=== PATIENT | female | born 1945 | race Caucasian/White ===

== ENCOUNTER 2023-01-22 16:37 | Inpatient (IN) | payer MEDICARE, SELFPAY ==
[2023-01-22 17:36] LABS: Basophils # 0.1 10^3/uL (0.0-0.1); Basophils % 0.8 %; Eosinophils # 0.2 10^3/uL (0.0-0.8); Eosinophils % 2.3 %; Hematocrit 23.5 % (36-47); Lymphocytes # 1.4 10^3/uL (0.8-4.8); Lymphocytes % 14.6 %; Mean Corpuscular HGB Conc 33.2 g/dL (30-55); Mean Corpuscular Hemoglobin 33.3 pg (27-33); Mean Corpuscular Volume 100.4 fl (85-98); Mean Platelet Volume 8.7 fL (7.4-10.4); Monocytes # 0.8 10^3/uL (0.2-0.9); Monocytes % 8.8 %; Neutrophils # 6.86 10^3/uL (1.8-7.7); Neutrophils % 71.6 %; Nucleated Red Blood Cells % 0 %; Platelet Count 316 10^3/cmm (157-399); Red Blood Count 2.34 10^6/uL (3.85-5.65); Red Cell Distribution Width 13.3 % (12.1-15.1); White Blood Count 9.58 10^3/uL (3.29-11.43)
[2023-01-22 17:45] VITALS: PULSE 70; TEMP 37; O2SAT 92; BMI 33.1
[2023-01-22 17:53] VITALS: BP 150/47
[2023-01-22 17:54] LABS: Alanine Aminotransferase 15 U/L (0-33); Albumin Level 3.6 g/dL (3.5-5.2); Alkaline Phosphatase 65 U/L (35-105); Anion Gap 12.1 (5-19); Aspartate Amino Transferase 15 U/L (0-32); Blood Urea Nitrogen 25 mg/dL (8-23); Calcium 8.4 mg/dL (8.5-10.5); Carbon Dioxide 30 mmol/L (22-29); Chloride 95 mmol/L (98-107); Globulin 2.7 g/dL (1.3-4.6); Glucose 165 mg/dL (65-115); Osmolality Calculated 284 mOsm/kg (285-295); Potassium 4.1 mmol/L (3.5-5.1); Sodium 133 mmol/L (136-145); Total Bilirubin 0.3 mg/dL (0.15-1.2); Total Protein 6.3 g/dL (6.6-8.7)
[2023-01-22 21:30] VITALS: BP 142/56; PULSE 69; TEMP 36.8; O2SAT 96
[2023-01-22 22:00] VITALS: PULSE 73; O2SAT 93
--- NOTE | 2023-01-22 22:23 | W.ED.RECABL ---
HPI - Recheck/Abnormal Lab/Rx General: Chief Complaint: Recheck/Abnormal Lab/Rx Stated Complaint: doctor thinks that her hgb is low Time Seen by Provider: 01/22/23 21:28 History of Present Illness: 77-year-old female brought to emergency room by [id number] with generalized weakness and recent fall. Family reveals that patient was admitted on Thursday for upper GI bleed and discharge on Thursday with a hemoglobin of 7.5 after she was transfused with 1 unit of blood. Since discharge from the hospital patient become more weak, dizzy and had a fall this morning. Patient is on any cough, coughing up blood or vomiting blood. No bloody stool or dark stool. Review of Systems General: Reports: 10 or more systems reviewed and unremarkable except in HPI and below Const: Denies: fever(s), chills or body aches Card: Denies: chest pain, palpitations or irregular heart rhythm Resp: Denies: dyspnea, productive cough, non-productive cough, wheezing, stridor, pain on inspiration or change in phlegm color GI: Denies: abdominal pain, nausea, vomiting, hematemesis, early satiety, diarrhea or constipation Musc: Denies: neck pain, back pain, extremity pain, extremity swelling, joint pain, joint swelling, joint redness or joint warmth Skin/Breast: Reports: rash, skin pain and skin tenderness; Denies: erythema, photosensitivity or skin swelling Neuro: Reports: weakness in extremities; Denies: headache(s), numbness in extremities, behavioral changes, Slurred speech present, difficulty communicating thoughts, seizure-like activity, involuntary movements or restless legs Ray/Lymph: Denies: easy bruising, easy bleeding, petechiae, purpura, enlarged lymph nodes or tender lymph nodes Physical Exam Const: COMMON NORMALS: no acute distress, average body habitus, patient oriented x3, no limitations, healthy appearing, alert and well nourished HENMT: COMMON NORMALS: normocephalic, atraumatic, hearing grossly normal bilaterally, external ears normal, EAC's normal, TM's normal bilaterally, Normal external nose present, Normal nasal mucous membranes and turbinates present, moist oral mucous membranes, oropharynx normal, dentition normal and gingiva normal HEAD & SCALP: normocephalic and atraumatic NOSE: Normal external nose present and Normal nasal mucous membranes and turbinates present EXTERNAL EAR: Yes external ears normal EXTERNAL AUDITORY CANAL: EAC's normal TYMPANIC MEMBRANE: TM's normal bilaterally Neck/C-Spine: COMMON NORMALS: no JVD Chest: COMMONS NORMALS: normal inspection of the chest, normal palpation of entire chest wall, normal inspection of the breasts and normal palpation of the breasts Breast/axilla inspection: Yes normal inspection of the breasts BREAST/AXILLA PALPATION: Yes normal palpation of the breasts Resp: COMMON NORMALS: normal respiratory effort, No retractions, No use of accessory muscles, clear to auscultation bilaterally and percussion normal AUSCULTATION: clear to auscultation bilaterally PERCUSSION: percussion normal Cardio: COMMON NORMALS: no JVD, regular rate, regular rhythm, S1 normal heart sound present, S2 normal heart sound present, No gallops present (Cardio), No clicks present (Cardio), No murmurs present (Cardio), No rub (Cardio) and Peripheral pulses 2+ throughout RATE: regular rate RHYTHM: regular rhythm HEART SOUNDS: S1 normal heart sound present and S2 normal heart sound present PERIPHERAL PULSES: Peripheral pulses 2+ throughout GI: COMMON NORMALS: Normal to inspection, nondistended, normoactive bowel sounds present, Soft to palpation, non-tender, No hepatosplenomegaly present, no masses and no bruits PALPATION: Yes Soft to palpation and Yes No hepatosplenomegaly present Extremity: COMMON NORMALS: normal to inspection, full ROM, capillary refill normal, no joint enlargement, no clubbing, cyanosis or edema, no calf tenderness and no pedal edema Neuro: LOAN COMA SCALE: document GCS findings COMMON NORMALS: patient oriented x3 SENSORIUM/ORIENTATION: Yes alert Psych: COMMON NORMALS: mental status grossly normal, Normal thought process present, cooperative, normal affect, speech normal, activity/motor behavior normal, denies hallucinations, denies homicidal ideation and denies suicidal ideation SPEECH: Yes normal speech THOUGHT PROCESS: Normal thought process present Skin: LESIONS: lesion noted (ruq with lesions c/w shingles ) Course ED course: Patient made comfortable in emergency room and had extensive work-up done including CBC, CMP and a UA. Discussed patient with family and the hospitalist. Patient will be admitted for further evaluation and treatment Consultations: Consultation #1: Discussed patient with the hospitalist. Patient will be admitted for further evaluation and treatment. Vital Signs: Vital signs: Vital Signs Temperature 98.2 F 01/22/23 21:30 Pulse Rate 69 01/22/23 21:30 Blood Pressure 142/56 01/22/23 21:30 Pulse Oximetry 96 01/22/23 21:30 Oxygen Delivery Me thod Room Air 01/22/23 21:30 MDM - Recheck/Abnormal Lab/Rx Medical Decision Making Patient made comfortable emergency room and had extensive work-up with CBC, CMP and a UA. Discussed patient with family and the hospitalist. Differential Diagnosis Likely warfarin-induced coagulopathy (UTI, GI bleeding, anemia, acute infection) Lab Data 01/22/23 17:07 01/22/23 17:07 Laboratory Results WBC 9.58 10^3/uL (3.29-11.43) 01/22/23 17:07 RBC 2.34 10^6/uL (3.85-5.65) L 01/22/23 17:07 Hgb 7.80 g/dL (11.27-16.99) L 01/22/23 17:07 Hct 23.5 % (36-47) L 01/22/23 17:07 MCV 100.4 fl (85-98) H 01/22/23 17:07 MCH 33.3 pg (27-33) H 01/22/23 17:07 MCHC 33.2 g/dL (30-55) 01/22/23 17:07 RDW 13.3 % (12.1-15.1) 01/22/23 17:07 Plt Count 316 10^3/cmm (157-399) 01/22/23 17:07 MPV 8.7 fL (7.4-10.4) 01/22/23 17:07 Neut % (Auto) 71.6 % 01/22/23 17:07 Lymph % (Auto) 14.6 % 01/22/23 17:07 [place] % (Auto) 8.8 % 01/22/23 17:07 Eos % (Auto) 2.3 % 01/22/23 17:07 Baso % (Auto) 0.8 % 01/22/23 17:07 Neut # (Auto) 6.86 10^3/uL (1.8-7.7) 01/22/23 17:07 Lymph # (Auto) 1.4 10^3/uL (0.8-4.8) 01/22/23 17:07 [place] # (Auto) 0.8 10^3/uL (0.2-0.9) 01/22/23 17:07 Eos # (Auto) 0.2 10^3/uL (0.0-0.8) 01/22/23 17:07 Baso # (Auto) 0.1 10^3/uL (0.0-0.1) 01/22/23 17:07 Nucleated RBC % (auto) 0 % 01/22/23 17:07 Nucleated RBCs # 0.0 /100WBC 01/22/23 17:07 Sodium 133 mmol/L (136-145) L 01/22/23 17:07 Potassium 4.1 mmol/L (3.5-5.1) 01/22/23 17:07 Chloride 95 mmol/L (98-107) L 01/22/23 17:07 Carbon Dioxide 30 mmol/L (22-29) H 01/22/23 17:07 Anion Gap 12.1 (5-19) 01/22/23 17:07 BUN 25 mg/dL (8-23) H 01/22/23 17:07 Creatinine 1.1 mg/dL (0.5-0.9) H 01/22/23 17:07 GFR Calculation Not Reportable 01/22/23 17:07 Glucose 165 mg/dL (65-115) H 01/22/23 17:07 Calculated Osmolality 284 mOsm/kg (285-295) L 01/22/23 17:07 Calcium 8.4 mg/dL (8.5-10.5) L 01/22/23 17:07 Total Bilirubin 0.3 mg/dL (0.15-1.2) 01/22/23 17:07 AST 15 U/L (0-32) 01/22/23 17:07 ALT 15 U/L (0-33) 01/22/23 17:07 Alkaline Phosphatase 65 U/L (35-105) 01/22/23 17:07 Total Protein 6.3 g/dL (6.6-8.7) L 01/22/23 17:07 Albumin 3.6 g/dL (3.5-5.2) 01/22/23 17:07 Globulin 2.7 g/dL (1.3-4.6) 01/22/23 17:07 No radiology studies performed this visit Discharge Plan Discharge Patient Disposition: Placed in Observation Clinical Impression: Physical deconditioning, Shingles, Anemia Coding Level of Care Code ED [employer] for [place]
[2023-01-22 23:00] VITALS: PULSE 67; O2SAT 91
[2023-01-22] MEDS: sodium chloride 0.9% 500 ML IV (23:40)
[2023-01-22] MEDS: valACYclovir 1,000 mg Tablet 1000 MG PO (23:40)
[2023-01-23] VITALS (8 sets, daily range): BP systolic 157–185; BP diastolic 61–74; PULSE 66–77; RESP 16–18; TEMP 36.4–37; O2SAT 91–96
--- NOTE | 2023-01-23 05:42 | P.HP_ITS ---
Providers/Chief Complaint Admitting Physician: Kristi Ruby MD Primary Care Provider: Alex Gary DO Chief Complaint: doctor thinks that her hgb is low History of Present Illness Leslie Waddell is a 77 year old female was brought in by family for generalized weakness and unable to get out of bed. She was recently seen in [place] on Thursday for severe anemia secondary to GI bleed. She received 1 unit blood transfusion and was discharged on Thursday. Since then the family has been mentioning of her worsening weakness. There is no history of fever cold cough chest pain shortness of breath urinary or bowel complaints. Last hemoglobin on discharge was 7.5 Review of Systems Narrative: As per HPI Medications/Allergies Allergies Allergy/AdvReac Type Severity Reaction Status Date / Time Penicillins Allergy Unknown Verified 01/22/23 17:54 Vitals/I&O/Wt Last Vital Signs Temp 98.3 F 01/23/23 05:18 Pulse 68 01/23/23 05:18 Resp 18 01/23/23 05:18 BP 166/65 01/23/23 05:18 Pulse Ox 91 01/23/23 05:18 O2 Del Method Room Air 01/23/23 05:18 01/22/23 01/22/23 01/23/23 14:59 22:59 06:59 Intake Total 500 / 500 Balance 500 / 500 Weight last 48 hrs Weight 90.265 kg Physical Exam Narrative: She is alert awake oriented x3, not in acute distress Chest clear to auscultation bilaterally Cardiovascular normal heart sounds regular rhythm Abdomen NAD Skin macular erythematous rash with signs of secondary bacterial infection seen on right lateral abdomen consistent with shingles rash with secondary infection Extremities 1+ pitting bilateral lower extremity edema present Data 01/22/23 17:07 01/22/23 17:07 A&P Assessment and plan (1) Physical deconditioning: (2) Anemia: Plan 77-year-old female with history of CAD s/p CABG 5 years ago atrial fibrillation on warfarin till 1 week ago, recent history of GI bleed history of shingles 3 weeks ago no antiviral medications take and chronic anemia was brought in by family for worsening of generalized weakness likely secondary to physical deconditioning Labs reviewed and acceptable. Hemoglobin stable at 7.8. No need for further blood transfusion at this time. Continue IV fluids normal saline at 60 mm/h Will get PT evaluation in a.m. Regular diet Home medications to be confirmed in a.m. and resumed. IV Pepcid 20 mg every 12 hours for stress ulcer prophylaxis Given history of recent GI bleed intermittent compression stockings for DVT prophylaxis. She is full code for now Shingles with secondary bacterial infection Will give p.o. valacyclovir 1 g twice daily And p.o. Bactrim DS 1 tab twice a day Attestations Medical Necessity Statement*: She is here for observation for rehab Time Spent in Patient Care: 30 minutes Coding Level of Care Code Acute Code for g Fwd Diagnoses Physical deconditioning R53.81 Anemia D64.9 Time Spent (min) 30
[2023-01-23] MEDS: sodium chloride 0.9% 1,000 ML 60 ML IV ×2 (05:53→17:43)
[2023-01-23] MEDS: famotidine 20 mg/2 mL INJ IVP (06:03)
[2023-01-23] MEDS: valACYclovir 1,000 mg Tablet 1000 MG PO ×3 (08:30→23:42)
[2023-01-23] MEDS: sulfamethoxazole-trimeth DS 160-800 mg Tablet 1 TAB PO (08:30)
[2023-01-23 09:15] LABS: Basophils # 0.1 10^3/uL (0.0-0.1); Basophils % 1.1 %; Eosinophils # 0.2 10^3/uL (0.0-0.8); Eosinophils % 2.6 %; Hematocrit 23.3 % (36-47); Lymphocytes # 1.2 10^3/uL (0.8-4.8); Lymphocytes % 13.8 %; Mean Corpuscular Hemoglobin 33.2 pg (27-33); Mean Corpuscular Volume 100.4 fl (85-98); Mean Platelet Volume 8.9 fL (7.4-10.4); Monocytes # 0.7 10^3/uL (0.2-0.9); Monocytes % 8.7 %; Neutrophils % 71.9 %; Nucleated Red Blood Cells % 0 %; Platelet Count 319 10^3/cmm (157-399); Red Blood Count 2.32 10^6/uL (3.85-5.65); Red Cell Distribution Width 13.3 % (12.1-15.1); White Blood Count 8.48 10^3/uL (3.29-11.43)
--- NOTE | 2023-01-23 09:39 | XR_ITS ---
WS: [id number] Exam: XR chest 1V portable [id number] Date/Time of Exam: 01/23/2023 10:08 AM Reason For Exam: weakness No priors. Lungs are clear and fully inflated. Cardiomediastinal silhouette is unremarkable. No pleural effusion s. Eventration of the RIGHT diaphragm. Bony structures are intact. Moderate DJD of the RIGHT shoulder . Bilateral carotid artery calcified plaques noted. IMPRESSION: 1. No acute cardiopulmonary finding. 2. Status post CABG surgery. Other minor findings as above.
[2023-01-23 10:05] LABS: Alanine Aminotransferase 14 U/L (0-33); Albumin Level 3.5 g/dL (3.5-5.2); Alkaline Phosphatase 64 U/L (35-105); Anion Gap 11.1 (5-19); Aspartate Amino Transferase 14 U/L (0-32); Blood Urea Nitrogen 19 mg/dL (8-23); Calcium 8.3 mg/dL (8.5-10.5); Carbon Dioxide 29 mmol/L (22-29); Chloride 95 mmol/L (98-107); Globulin 2.2 g/dL (1.3-4.6); Glucose 236 mg/dL (65-115); Osmolality Calculated 282 mOsm/kg (285-295); Potassium 4.1 mmol/L (3.5-5.1); Sodium 131 mmol/L (136-145); Total Bilirubin 0.2 mg/dL (0.15-1.2); Total Protein 5.7 g/dL (6.6-8.7)
[2023-01-23 10:19] LABS: Troponin(5th) Baseline 17 ng/L (0-10)
[2023-01-23] MEDS: ondansetron 2 mg/ML SDV 2 mL 4 MG IVP (10:33)
[2023-01-23] MEDS: pantoprazole 40 mg SDV IVP ×2 (10:33→22:58)
[2023-01-23 10:37] LABS: Folate Level < 20.0 ng/mL (4.8-37.3)
[2023-01-23 10:38] LABS: Ferritin 41 ng/mL (15-150); Iron 18 ug/dL (37-145); NT Pro B Type Natriuretic Pept 257 pg/mL (0-450); Percent Saturation 6.5 % (20-50); Total Iron Binding Capacity 276 mcg/dl; Unsaturated Iron Binding 258 ug/dL (112-347); Vitamin B12 708 pg/mL (232-1245)
--- NOTE | 2023-01-23 11:28 | ECG_ITS ---
[facility] Test Date: 2023-01-23 Pat Name: Leslie Waddell Department: Room: 267 Gender: Female [employer]: : [id number] Requested By: Dragan Kohler Order Number: [id number] Charlie MD: Tiana Aden M.D. Measurements Intervals [place] Rate: 76 P: 9 DC: 172 QRS: 5 QRSD: 79 T: 132 QT: 347 QTc: 390 Interpretive Statements SINUS RHYTHM LEFT VENTRICULAR HYPERTROPHY AND ST-T CHANGE [VOLTAGE CRITERIA PLUS ST/T ABNORMALITY] POSSIBLE ANTERIOR MYOCARDIAL INFARCTION , OF INDETERMINATE AGE [30 ms Q WAVE IN V3/V4, OR R < 0.2 mV IN V4] No previous ECG available for comparison Electronically Signed On 01-23-2023 19:06:58 CDT by Tiana Aden M.D. [id number]
[2023-01-23 11:54] LABS: Glucose Point of Care 221 mg/dL (70-110)
--- NOTE | 2023-01-23 12:13 | CT_ITS ---
WS: [id number] CT ABDOMEN AND PELVIS NONCONTRAST HISTORY: n/v TECHNIQUE: Imaging performed through the abdomen and pelvis. Coronal and sagittal reformats are submi tted. All CT scans at [facility] use at least one of these dose optimization techniques: auto mated exposure control; mA and/or kV adjustment per patient size (includes targeted exams where dose is matched to clinical indication); or iterative reconstruction. DLP: 999.73 mGy.cm COMPARISON: None available. Lower thorax: Lung bases are clear. Visualized heart is mildly enlarged. No hiatal hernia. Prior CABG . Liver: Normal size liver. No mass or bile duct dilatation. Gallbladder: Normal gallbladder. No pericholecystic fluid or cholelithiasis. No gallbladder wall thic kening. Pancreas: Mild atrophy. No inflammation. No duct dilatation prior Spleen: Normal size with granulomata. Adrenal glands: Normal RIGHT adrenal gland. Lobulated low-attenuation mass measuring 2.0 x 1.5 cm ass ociated with the LEFT adrenal gland. Consistent with an adenoma. Right kidney: Normal size kidney with no mass or hydronephrosis. Left kidney: Normal size kidney with no mass or hydronephrosis. Aorta: Mild atherosclerosis abdominal aorta with no aneurysm. No free fluid, intraperitoneal air or significant lymphadenopathy. GI tract: Nondistended stomach. No small bowel obstruction. The appendix is not identified. No second anmol findings of appendicitis. Mild diverticular disease in the sigmoid. No acute diverticulitis. Abdominal wall: Small umbilical hernia contains fat only. Pelvis: No free fluid or adenopathy. Negative urinary bladder. Osseous structures: Increase in lumbar lordosis. Degenerative disc disease and vacuum disc phenomenon . IMPRESSION: 1. No acute abdominal or pelvic abnormalities. 2. No renal obstruction. 3. No GI tract obstruction. 4. Mild diffuse atherosclerosis aorta and iliac arteries.
--- NOTE | 2023-01-23 12:13 | CT_ITS ---
WS: [id number] CT HEAD NONCONTRAST HISTORY: ams TECHNIQUE: Contiguous axial imaging performed through the brain in 2.5 mm imaging. Bone and soft tiss ue windows. Sagittal and coronal reformats reviewed. All CT scans at [facility] use at least one of these dose optimization techniques: automated exposure control; mA and/or kV adjustment per pa tient size (includes targeted exams where dose is matched to clinical indication); or iterative recon struction. DLP: 2203.58 mGy.cm COMPARISON: None available. No acute intracranial hemorrhage, midline shift or mass effect. Low-attenuation centered in the RIGHT frontal lobe involve the corpus callosum. Cortex is spared. Thi s focal edema is very low-attenuation and measures 1.5 x 2.6 x 3.2 cm. No shift of the midline struct ures. There is no hemorrhage or calcification. Mild atrophy. Prior lacunar infarct in the anterior li mb of the RIGHT internal capsule, insular ribbon on the LEFT. Ventricles: Normal size with no hydroc ephalus. Paranasal sinuses: As visualized are clear. Mastoid air cells: Well pneumatized. Calvarium and scalp: Skull is intact with no soft tissue edema or swelling. Moderate vascular calcifications in the distal LEFT vertebral artery and also involving the bilateral intracranial carotid arteries. IMPRESSION: 1. Low-attenuation edema centered in the RIGHT frontal lobe with involvement of the corpus callosum. No hemorrhage or calcification. White matter abnormality measures 1.5 x 2.6 x 3.2 cm. Differential in cludes glioma, metastatic disease and primary lymphoma. Infarct or demyelination not excluded. Recomm end follow-up MRI brain with and without contrast. 2. Mild atrophy and small vessel ischemic disease with small lacunar infarcts.
[2023-01-23] MEDS: insulin lispro 100 unit/1 mL SUBCUT ×2 (13:19→17:43)
[2023-01-23] MEDS: amlodipine 10 mg Tablet PO (13:38)
--- NOTE | 2023-01-23 15:23 | P.PN_ITS ---
Subjective Subjective: Patient was seen this morning, she is alert to person, to place, not to time she does follow commands but she is quite drowsy this morning, she requires frequent reorientation, she is able to move both upper extremities lower extremities, she feels very nauseous, she does complain of right upper quadrant abdominal pain but that is where her shingles rashes she tells me, she tells me that she was recently here at outside hospital for GI bleed she had EGD she was found to have a gastric ulcer her Coumadin has been stopped, for A-fib denies any facial droop no slurring of her words, no focal weakness, she does feel weak all over, Vitals/I&O/Wt Last Vital Signs Temp 98.5 F 01/23/23 11:10 Pulse 77 01/23/23 11:10 Resp 16 01/23/23 11:10 BP 178/63 01/23/23 11:10 Pulse Ox 94 01/23/23 11:10 O2 Del Method Room Air 01/23/23 11:10 01/23/23 01/23/23 01/23/23 06:59 14:59 22:59 Intake Total 500 / 500 360 / 360 Balance 500 / 500 360 / 360 Weight last 48 hrs Weight 90.265 kg Physical Exam Const: COMMON NORMALS: no acute distress and patient oriented x3 Resp: COMMON NORMALS: normal respiratory effort, No retractions, No use of accessory muscles and clear to auscultation bilaterally AUSCULTATION: clear to auscultation bilaterally Cardio: COMMON NORMALS: regular rate, regular rhythm, S1 normal heart sound present and S2 normal heart sound present RATE: regular rate RHYTHM: regular rhythm HEART SOUNDS: S1 normal heart sound present and S2 normal heart sound present GI: OTHER: He doesAbdomen soft, ND, no guarding, no rebound, rigidity, does have right upper quadrant tenderness Extremity: COMMON NORMALS: no pedal edema Neuro: COMMON NORMALS: patient oriented x3 Psych: COMMON NORMALS: mental status grossly normal Skin: NARRATIVE SKIN EXAM: Shingles rash, open, multiple vesicular regions, actively draining, along right upper quadrant dermatomal fashion Data 01/23/23 09:03 01/23/23 09:03 A&P Assessment and plan (1) Physical deconditioning: (2) Anemia: (3) Shingles: (4) GI bleed: (5) History of atrial fibrillation: (6) History of type 2 diabetes mellitus: (7) Acute encephalopathy: (8) Generalized weakness: Plan 77-year-old female with history of CAD s/p CABG 5 years ago atrial fibrillation on warfarin till 1 week ago, recent history of GI bleed history of shingles 3 weeks ago no antiviral medications take and chronic anemia was brought in by family for worsening of generalized weakness Acute on chronic anemia -Possibly secondary to slow GI bleed -Iron studies, ferritin, B12, folate levels, Hemoccult stool, CT scan abdomen pelvis -Monitor hemoglobin closely History of GI bleed, history of gastric ulcer -Protonix, Carafate -Monitor hemoglobin closely Intractable nausea vomiting -Complains of right upper quadrant pain -CT scan abdomen pelvis Shingles rash -Right upper quadrant -Contact precautions -Keep area clean and dry, keep covered -Continue valacyclovir -Tramadol for pain control -Doxycycline for cellulitis prophylaxis Generalized weakness -PT OT Type 2 diabetes mellitus, low-dose sliding scale, Lantus 10 units at bedtime Acute encephalopathy, CT head, neurochecks, aspiration precautions, and a stroke scale Atrial fibrillation, not on anticoagulation due to GI bleed, off Coumadin, telemetry monitoring ARIANA, IV fluids Given history of recent GI bleed intermittent compression stockings for DVT prophylaxis. She is full code for now Attestations Medical Necessity Statement*: Patient requires hospitalization due to generalized weakness, anemia, history of GI bleed, encephalopathy, Coding Level of Care Code 13537 Moderate MDM includes number and complexity of problems actively addressed during encounter, amount and/or complexity of data reviewed/ordered and described risk of complication, morbidity or mortality of management as document ed Diagnoses Physical deconditioning R53.81 Anemia D64.9 Shingles B02.9 GI bleed K92.2 History of atrial fibrillation Z86.79 History of type 2 diabetes mellitus Z86.39 Acute encephalopathy G93.40 Generalized weakness R53.1
[2023-01-23 15:49] LABS: Troponin 5 6HR 17.31 ng/L (0-10); Troponin 5 6HR Delta 0.31 ng/L (0-12)
[2023-01-23] MEDS: gabapentin 300 mg Capsule PO ×2 (16:03→21:36)
[2023-01-23 16:46] LABS: Glucose Point of Care 157 mg/dL (70-110)
[2023-01-23] MEDS: OXcarbazepine 300 mg Tablet PO (17:42)
[2023-01-23] MEDS: doxycycline 100 mg Tablet PO (17:43)
[2023-01-23] MEDS: metoclopramide 5 mg/mL SDV 2 mL IVP (18:04)
[2023-01-23 18:37] LABS: Hematocrit 28.7 % (36-47)
[2023-01-23 20:38] LABS: Glucose Point of Care 177 mg/dL (70-110)
[2023-01-23] MEDS: insulin glargine 100 units/1 mL 10 UNIT SUBCUT (21:36)
[2023-01-23] MEDS: sucralfate 1 gm Tablet PO (21:36)
[2023-01-24] VITALS (10 sets, daily range): BP systolic 141–165; BP diastolic 61–71; PULSE 62–76; RESP 14–18; TEMP 36.8–37.1; O2SAT 83–98
[2023-01-24 05:36] LABS: Basophils # 0.1 10^3/uL (0.0-0.1); Basophils % 1.2 %; Eosinophils # 0.4 10^3/uL (0.0-0.8); Eosinophils % 4.9 %; Hematocrit 24.5 % (36-47); Lymphocytes # 1.5 10^3/uL (0.8-4.8); Lymphocytes % 16.6 %; Mean Corpuscular HGB Conc 32.2 g/dL (30-55); Mean Corpuscular Hemoglobin 32.5 pg (27-33); Mean Corpuscular Volume 100.8 fl (85-98); Mean Platelet Volume 8.7 fL (7.4-10.4); Monocytes # 0.9 10^3/uL (0.2-0.9); Monocytes % 10.3 %; Neutrophils # 5.83 10^3/uL (1.8-7.7); Neutrophils % 65.2 %; Nucleated Red Blood Cells % 0 %; Platelet Count 323 10^3/cmm (157-399); Red Blood Count 2.43 10^6/uL (3.85-5.65); Red Cell Distribution Width 13.4 % (12.1-15.1); White Blood Count 8.95 10^3/uL (3.29-11.43)
[2023-01-24 06:00] LABS: Anion Gap 10.2 (5-19); Blood Urea Nitrogen 17 mg/dL (8-23); Calcium 8.4 mg/dL (8.5-10.5); Carbon Dioxide 29 mmol/L (22-29); Chloride 98 mmol/L (98-107); Glucose 109 mg/dL (65-115); Osmolality Calculated 278 mOsm/kg (285-295); Potassium 4.2 mmol/L (3.5-5.1); Sodium 133 mmol/L (136-145)
[2023-01-24 08:42] LABS: Glucose Point of Care 147 mg/dL (70-110)
[2023-01-24 08:42] LABS: Glucose Point of Care 122 mg/dL (70-110)
[2023-01-24] MEDS: valACYclovir 1,000 mg Tablet 1000 MG PO ×3 (08:51→23:53)
[2023-01-24] MEDS: insulin lispro 100 unit/1 mL SUBCUT ×3 (08:51→17:29)
[2023-01-24] MEDS: gabapentin 300 mg Capsule PO ×3 (08:52→21:08)
[2023-01-24] MEDS: sucralfate 1 gm Tablet PO ×2 (08:52→21:08)
[2023-01-24] MEDS: doxycycline 100 mg Tablet PO ×2 (08:52→17:28)
[2023-01-24] MEDS: amlodipine 10 mg Tablet PO (08:52)
[2023-01-24] MEDS: OXcarbazepine 300 mg Tablet PO ×2 (08:52→17:28)
[2023-01-24] MEDS: pantoprazole 40 mg SDV IVP ×2 (10:28→23:45)
[2023-01-24 10:51] LABS: Glucose Point of Care 209 mg/dL (70-110)
[2023-01-24] MEDS: TRAMadol 50 mg Tablet PO (11:30)
--- NOTE | 2023-01-24 12:55 | PM.PN ---
Vitals/I&O/Wt Last Vital Signs Temp 98.2 F 01/24/23 10:53 Pulse 75 01/24/23 10:53 Resp 18 01/24/23 10:53 BP 153/61 01/24/23 10:53 Pulse Ox 96 01/24/23 10:53 O2 Del Method Room Air 01/24/23 10:53 01/23/23 01/24/23 01/24/23 22:59 06:59 14:59 Intake Total 710 / 1070 1480 / 1480 Output Total 400 / 400 Balance 710 / 1070 1080 / 1080 Weight last 48 hrs Weight 90.265 kg Physical Exam Const: COMMON NORMALS: no acute distress and patient oriented x3 Resp: COMMON NORMALS: normal respiratory effort, No retractions, No use of accessory muscles and clear to auscultation bilaterally AUSCULTATION: clear to auscultation bilaterally Cardio: COMMON NORMALS: regular rate, regular rhythm, S1 normal heart sound present and S2 normal heart sound present RATE: regular rate RHYTHM: regular rhythm HEART SOUNDS: S1 normal heart sound present and S2 normal heart sound present GI: COMMON NORMALS: Normal to inspection, nondistended, normoactive bowel sounds present and non-tender Extremity: COMMON NORMALS: no pedal edema Neuro: COMMON NORMALS: patient oriented x3 Psych: COMMON NORMALS: mental status grossly normal Data 01/24/23 05:15 01/24/23 05:15 A&P Assessment and plan (1) Physical deconditioning: (2) Anemia: (3) Shingles: (4) GI bleed: (5) History of atrial fibrillation: (6) History of type 2 diabetes mellitus: (7) Acute encephalopathy: (8) Generalized weakness: Plan 77-year-old female with history of CAD s/p CABG 5 years ago atrial fibrillation on warfarin till 1 week ago, recent history of GI bleed history of shingles 3 weeks ago no antiviral medications take and chronic anemia was brought in by family for worsening of generalized weakness Acute on chronic anemia -Possibly secondary to slow GI bleed -Iron studies, ferritin, B12, folate levels, Hemoccult stool, CT scan abdomen pelvis no acute findings -Monitor hemoglobin closely History of GI bleed, history of gastric ulcer -Protonix, Carafate -Monitor hemoglobin closely Intractable nausea vomiting -Complains of right upper quadrant pain -CT scan abdomen pelvis Shingles rash -Right upper quadrant -Contact precautions -Keep area clean and dry, keep covered -Continue valacyclovir -Tramadol for pain control -Doxycycline for cellulitis prophylaxis Generalized weakness -PT OT Type 2 diabetes mellitus, low-dose sliding scale, Lantus 10 units at bedtime Acute encephalopathy, CT head, neurochecks, aspiration precautions, and a stroke scale Atrial fibrillation, not on anticoagulation due to GI bleed, off Coumadin, telemetry monitoring ARIANA, IV fluids Given history of recent GI bleed intermittent compression stockings for DVT prophylaxis. She is full code for now ct head shows 1. Low-attenuation edema centered in the RIGHT frontal lobe with involvement of the corpus callosum. No hemorrhage or calcification. White matter abnormality measures 1.5 x 2.6 x 3.2 cm. Differential includes glioma, metastatic disease and primary lymphoma. Infarct or demyelination not excluded. Recommend follow-up MRI brain with and without contrast. -devora order MRI brain will order mri today, follow hgb Attestations Medical Necessity Statement*: patient acute on chronic anemia, ct head and mri, pt ot Diagnoses Physical deconditioning R53.81 Anemia D64.9 Shingles B02.9 GI bleed K92.2 History of atrial fibrillation Z86.79 History of type 2 diabetes mellitus Z86.39 Acute encephalopathy G93.40 Generalized weakness R53.1
--- NOTE | 2023-01-24 13:12 | MRR_ITS ---
PROCEDURE INFORMATION: Exam: MR Head Without Contrast Exam date and time: 01/24/2023 1:37 PM Age: 77 years old Clinical indication: Abnormal findings; Abnormal radiologic findings of head/skull; Not specified; Additional info: Low-attenuation edema centered in the right frontal lobe TECHNIQUE: Imaging protocol: Magnetic resonance imaging of the head without contrast. COMPARISON: CT head wo con* [id number] 01/23/2023 12:54 PM FINDINGS: Brain: Area of restricted diffusion in the medial right frontal lobe, corresponding with location of hypodense lesion seen on comparison CT head, now measuring roughly 2.3 x 1.4 cm (series 302, image 18). Mild/minimal surrounding cerebral edema. No focal mass effect. Multiple additional scattered tiny foci of restricted diffusion in the right periventricular white matter. Subcentimeter focus of encephalomalacia in the right centrum semiovale, corresponding with hypodense lesion on comparison CT head, favored to represent a chronic infarct. Mild chronic microischemic white matter disease. No acute intracranial hemorrhage. No midline shift. Cerebral ventricles: Ventricles are normal in caliber. Bones/joints: Osseous structures are within normal limits. Paranasal sinuses: Visualized paranasal sinuses are clear. Mastoid air cells: Trace left mastoid effusion. Orbital cavities: Orbits are within normal limits. Soft tissues: Superficial soft tissues are within normal limits. MR/MR head wo con* [id number] IMPRESSION: 1. Acute infarct in the right frontal lobe, LILI distribution, corresponding with hypodense lesion seen on CT head 01/23/2023. 2. Multiple additional tiny acute infarcts in the right periventricular white matter, possibly within the right internal capsule. 3. 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
[2023-01-24] MEDS: ondansetron 2 mg/ML SDV 2 mL 4 MG IVP (13:23)
[2023-01-24 13:36] LABS: Add Urine Microscopic? NO; Charge for UA Resulting for Rev
[2023-01-24 13:47] LABS: Bilirubin Urine Neg (Negative); Blood Urine Neg (Negative); Glucose Urine UA 1+ (Normal); Ketones Urine Negative (Negative); Leukocyte Esterase Urine Negative (Negative); Nitrate Urine Negative (Negative); Protein Urine Neg (Negative); Urine Appearance Clear (CLEAR); Urine Color Straw (Yellow); Urobilinogen Urine Norm (Negative); pH Urine 6 (5-7)
[2023-01-24] MEDS: metoclopramide 5 mg/mL SDV 2 mL IVP (14:21)
[2023-01-24] MEDS: sodium chloride 0.9% 1,000 ML 60 ML IV (15:39)
[2023-01-24] MEDS: atorvastatin 40 mg Tablet PO (15:44)
[2023-01-24] MEDS: aspirin 81 mg EC Tablet PO (15:45)
[2023-01-24 16:27] LABS: Glucose Point of Care 174 mg/dL (70-110)
[2023-01-24 20:36] LABS: Glucose Point of Care 200 mg/dL (70-110)
[2023-01-24] MEDS: insulin glargine 100 units/1 mL 10 UNIT SUBCUT (21:08)
[2023-01-25] VITALS (16 sets, daily range): BP systolic 157–188; BP diastolic 64–73; PULSE 18–80; RESP 15–20; TEMP 36.7–37.1; O2SAT 95–99
[2023-01-25] MEDS: sodium chloride 0.9% 1,000 ML 60 ML IV (01:36)
[2023-01-25 04:10] LABS: Basophils # 0.1 10^3/uL (0.0-0.1); Eosinophils # 0.3 10^3/uL (0.0-0.8); Eosinophils % 4.2 %; Hematocrit 21.1 % (36-47); Lymphocytes # 1.4 10^3/uL (0.8-4.8); Mean Corpuscular HGB Conc 31.8 g/dL (30-55); Mean Corpuscular Hemoglobin 32.1 pg (27-33); Mean Platelet Volume 8.9 fL (7.4-10.4); Monocytes # 0.8 10^3/uL (0.2-0.9); Monocytes % 10.2 %; Neutrophils # 5.29 10^3/uL (1.8-7.7); Neutrophils % 66.5 %; Nucleated Red Blood Cells % 0 %; Platelet Count 262 10^3/cmm (157-399); Red Blood Count 2.09 10^6/uL (3.85-5.65); Red Cell Distribution Width 13.2 % (12.1-15.1); White Blood Count 7.95 10^3/uL (3.29-11.43)
[2023-01-25 04:37] LABS: Anion Gap 10.5 (5-19); Blood Urea Nitrogen 18 mg/dL (8-23); Calcium 8.2 mg/dL (8.5-10.5); Carbon Dioxide 29 mmol/L (22-29); Chloride 98 mmol/L (98-107); Creatinine Clr Calc Pharmacy 41.5001; Glucose 126 mg/dL (65-115); Osmolality Calculated 279 mOsm/kg (285-295); Potassium 4.5 mmol/L (3.5-5.1); Sodium 133 mmol/L (136-145)
[2023-01-25 06:43] LABS: Glucose Point of Care 117 mg/dL (70-110)
--- NOTE | 2023-01-25 08:16 | PC.NURSE ---
called pharmacy to retime pantoprozole and carafate for 0900. Pharmacy stated to keep these two medications together per physician.
[2023-01-25] MEDS: aspirin 81 mg EC Tablet PO (09:30)
[2023-01-25] MEDS: amlodipine 10 mg Tablet PO (09:30)
[2023-01-25] MEDS: OXcarbazepine 300 mg Tablet PO ×2 (09:30→17:39)
[2023-01-25] MEDS: valACYclovir 1,000 mg Tablet 1000 MG PO ×3 (09:30→23:52)
[2023-01-25] MEDS: doxycycline 100 mg Tablet PO ×2 (09:31→17:39)
[2023-01-25] MEDS: pantoprazole 40 mg SDV IVP ×2 (09:31→21:17)
[2023-01-25] MEDS: ondansetron 2 mg/ML SDV 2 mL 4 MG IVP (09:42)
[2023-01-25] MEDS: gabapentin 300 mg Capsule PO ×3 (10:00→20:56)
[2023-01-25] MEDS: sucralfate 1 gm Tablet PO ×2 (10:03→20:56)
[2023-01-25 11:10] LABS: Glucose Point of Care 280 mg/dL (70-110)
--- NOTE | 2023-01-25 11:33 | USCV_ITS ---
Leslie Waddell Age: 77 Gender: F : 1945 Exam Date: 01/25/2023 12:20 Ordering Phys: Dragan Kohler MD Technologist: Jorge Ludwig Exam Location: [facility] Indication: Embolic Cva BP: 177 / 65 HR: 74 Rhythm: Sinus Technical Quality: Adequate MEASUREMENTS (Male / Female) Normal Values 2D ECHO LVOT Diameter 2.0 cm LV Ejection Fraction MOD 2C 76.1 % LV Ejection Fraction 2C AL 76.4 % LA Diameter 4.0 cm LA Width 3.6 cm LA Height 5.1 cm RA Width 3.6 cm RA Height 4.2 cm Aorta at Sinotubular Diameter 1.7 cm IVC Diameter 1.6 cm M-MODE Aortic Annulus Diameter 2.3 cm LA Ao Ratio MM 1.9 MV E Point Septal Separation 0.6 cm DOPPLER AV Peak Velocity 209.3 cm/s LVOT Peak Velocity 99.0 cm/s AV Area Cont Eq vti 1.8 cm squared AV Area Cont Eq pk 1.5 cm squared MV Peak Velocity 187.0 cm/s MV Area PHT 3.3 cm squared Mitral E to A Ratio 0.8 MV E' Velocity 47.5 cm/s Mitral E to MV E' Ratio 8.3 Mitral E to LV E' Lateral Ratio 7.0 Mitral E to LV E' Septal Ratio 10.1 TR Peak Velocity 447.1 cm/s TR Peak Gradient 80.0 mmHg TR Mean Velocity 355.8 cm/s TR Mean Gradient 52.3 mmHg TR Velocity Time Integral 109.1 cm Right Atrial Pressure 3.0 mmHg Pulmonary Artery Systolic Pressu 83.0 mmHg PV Peak Velocity 121.7 cm/s RV Acceleration Time 0.1 s RV Ejection Time 0.3 s RV AcT/ET 0.4 FINDINGS Left Ventricle Normal left ventricular size, systolic function and upper normal wall thickness, with no regional wall motion abnormalities. Left ventricular ejection fraction is estimated at 75 %. Normal diastolic function. Right Ventricle Normal right ventricular size and systolic function. RVSP could not be calculated due to incomplete tricuspid regurgitation velocity profile. Right Atrium Normal right atrial size. Left Atrium Mildly increased left atrial size. Mitral Valve Mildly thickened mitral valve. No mitral valve stenosis. Trace to mild mitral valve regurgitation. Aortic Valve Structurally normal trileaflet aortic valve. No aortic valve stenosis. No aortic valve regurgitation. Tricuspid Valve Structurally normal tricuspid valve. Trace tricuspid valve regurgitation. Pulmonic Valve Structurally normal pulmonic valve. No pulmonary valve stenosis. Pericardium No pericardial effusion. Aorta Normal size aortic root and proximal ascending aorta. IVC Normal IVC dimension with >50% respiratory change of the inferior vena cava. CONCLUSIONS 1. Normal left ventricular size, systolic function and upper normal wall thickness, with no regional wall motion abnormalities. Left ventricular ejection fraction is estimated at 75 %. Normal diastolic function. 2. Trace to mild mitral valve regurgitation. 3. No prior similar studies to compare. Tiana Aden MD (Electronically Signed) Final Date: 25 January 2023 22:13 S
--- NOTE | 2023-01-25 11:33 | USR_ITS ---
Arterial ultrasound of the extracerebral carotid and vertebral arteries Clinical indication: CVA Technique: Real-time ultrasound with vila scale, duplex Doppler, and color flow imaging was performed to evaluate the extracerebral carotid and vertebral arteries. No prior vascular imaging studies are available for correlation at the time of dictation. Findings: Prominent mixed echogenic plaque formation is identified in the visualized carotid arteries. There is normal antegrade flow within the vertebral arteries bilaterally. The peak systolic velocity measurements within the right and left internal carotid arteries are 303 and 256 cm per second respectively. Abnormal spectral broadening is identified in the ICA waveforms bilaterally on Doppler imaging. The right systolic velocity ratio is 3.81, while the left systolic velocity ratio is 1.77. When correlating with NASCET index criteria, the elevated velocity measurements would be indicative of medium grade stenoses, on the order of 50-69%. US/CV carotid duplex BI* [id number] Impression: 1. Prominent mixed echogenic plaque formation within the carotid arteries. 2. Asymmetrically elevated systolic velocity measurements in the internal carotid arteries, right greater than left, consistent with medium grade stenosis, on the order of 50-69%. 3. Normal antegradew flow within the vertebral arteries.
[2023-01-25] MEDS: insulin lispro 100 unit/1 mL SUBCUT ×2 (12:51→17:39)
--- NOTE | 2023-01-25 14:42 | CTR_ITS ---
PROCEDURE INFORMATION: Exam: CTA Head With Contrast, Arteriography Exam date and time: 01/25/2023 5:20 PM Age: 77 years old Clinical indication: Other: Carotid stenosis TECHNIQUE: Imaging protocol: Computed tomographic angiography of the head with contrast. Exam focused on the arteries. 3D rendering (Not supervised by radiologist): MIP and/or 3D reconstructed images were created by the technologist. Radiation optimization: All CT scans at this facility use at least one of these dose optimization techniques: automated exposure control; mA and/or kV adjustment per patient size (includes targeted exams where dose is matched to clinical indication); or iterative reconstruction. Contrast material: OMNI 350; Contrast volume: 86 ml; Contrast route: INTRAVENOUS (IV); REPORTING DATA: Count of CT and Cardiac NM exams in prior 12 months: This patient has received 2 known CTs and 0 known cardiac nuclear medicine studies in the 12 months prior to the current study. COMPARISON: MR head rory con* [id number] 01/24/2023 1:37 PM RADIATION DOSE METRICS: Total DLP (mGy-cm): 1061.79 FINDINGS: ANTERIOR CIRCULATION: Right internal carotid artery: Intracranial segment is patent. Calcified plaque causes a mild stenosis at the carotid siphon. No aneurysm. Right middle cerebral artery: No occlusion or significant stenosis. No aneurysm. Right anterior cerebral artery: No occlusion or significant stenosis. No aneurysm. Left internal carotid artery: Intracranial segment is patent. Calcified plaque causes a mild stenosis at the carotid siphon. No aneurysm. Left middle cerebral artery: No occlusion or significant stenosis. No aneurysm. Left anterior cerebral artery: No occlusion or significant stenosis. No aneurysm. POSTERIOR CIRCULATION: Right vertebral artery: No occlusion or significant stenosis. No aneurysm. Left vertebral artery: Calcified plaque causes a severe 80% stenosis at the distal segment of the dominant left vertebral artery (series 9, image 178). Basilar artery: No occlusion or significant stenosis. No aneurysm. Right posterior cerebral artery: No occlusion or significant stenosis. No aneurysm. Left posterior cerebral artery: At least mild stenosis at the origin of the left posterior cerebral artery (series 9 image T2-5 and series 21, image 31). Right posterior communicating artery: Small Left posterior communicating artery: Small. Veins: No evidence of thrombosis of the cerebral veins. Brain: Acute hypodense cerebral infarct in the medial right frontal lobe in the LILI distribution. Cerebral ventricles: No ventriculomegaly. Bones/joints: Unremarkable. No acute fracture. Soft tissues: Unremarkable. PROCEDURE INFORMATION: Exam: CTA Neck With Contrast Exam date and time: 01/25/2023 5:20 PM Age: 77 years old Clinical indication: Other: Carotid stenosis TECHNIQUE: Imaging protocol: Computed tomographic angiography of the neck with contrast. 3D rendering (Not supervised by radiologist): MIP and/or 3D reconstructed images were created by the technologist. Radiation optimization: All CT scans at this facility use at least one of these dose optimization techniques: automated exposure control; mA and/or kV adjustment per patient size (includes targeted exams where dose is matched to clinical indication); or iterative reconstruction. Contrast material: OMNI 350; Contrast volume: 86 ml; Contrast route: INTRAVENOUS (IV); REPORTING DATA: Count of CT and Cardiac NM exams in prior 12 months: This patient has received 2 known CTs and 0 known cardiac nuclear medicine studies in the 12 months prior to the current study. COMPARISON: US CV carotid duplex BI* [id number] 01/25/2023 11:59 AM RADIATION DOSE METRICS: Total DLP (mGy-cm): 1061.79 FINDINGS: Right common carotid artery: No stenosis. No dissection or occlusion. Right internal carotid artery: At the distal right carotid bulb, soft and hard plaque causes a moderate 60% stenosis (series 9, image 126 and series 18, image 115). Right external carotid artery: No occlusion or stenosis of the origin. Left common carotid artery: No stenosis. No dissection or occlusion. Left internal carotid artery: Circumferential calcified plaque at the left carotid bulb causes a moderate 60% stenosis (series 9, image 137). At the distal left ICA, just proximal to the carotid canal, soft plaque at the posterior wall causes a moderate 65% stenosis (series 9, image 195) Left external carotid artery: No occlusion or stenosis of the origin. Right vertebral artery: No stenosis. No dissection or occlusion. Hypoplastic and patent. Left vertebral artery: No stenosis. No dissection or occlusion. Dominant. Calcified plaque at the distal cisternal segment causes a severe 80% stenosis (series 9, images 176-179). Soft tissues: Normal. No significant soft tissue swelling. Bones/joints: No acute fracture. CT/CT angio headneck* [id number] IMPRESSION: 1. Calcified plaque causes mild <50% stenoses at the right and left carotid siphons. 2. Severe 80% stenosis at the distal segment of the dominant left vertebral artery. 3. Hypoplastic patent right vertebral artery. 4. At least mild stenosis at the origin of the left posterior cerebral artery. IMPRESSION: 1. Moderate 60% stenosis at the right carotid bulb. 2. Moderate 60% stenosis at the left carotid bulb and 65% stenosis just proximal to the carotid canal. 3. Severe 80% stenosis at the distal segment of the dominant left vertebral artery. REFERENCES: NASCET CRITERIA. The degree of stenosis in the cervical segment of the internal carotid artery is based on NASCET criteria. Normal is no stenosis. Mild is less than 50% stenosis. Moderate is 50-69% stenosis. Severe is 70% to 99% stenosis. Total occlusion is no detectable patent lumen.
[2023-01-25] MEDS: sodium chloride 0.9% (100 ml) 100 ML (14:45)
--- NOTE | 2023-01-25 15:44 | P.PN_ITS ---
Subjective Subjective: - Patient was seen this morning -Multiple times, initially she was up out of bed into wheelchair, in the bathroom -She was later seen in bed, with her hobtjwum-vp-inn over the phone -I had extensive discussion with her about [place] [facility] [place] [facility] [place] the [place] -But according to her qrxrsvsl-hn-fiu, she was admitted at [facility] for acute blood loss anemia and upper GI bleed secondary to Coumadin for for which she is on Coumadin for, they did not specifically find a source of bleeding, but she had significant black tarry emesis so they took her off the Coumadin, she does not remember what her INR was -But they never gave her a transfusion, as her hemoglobin remained greater than 7 -I had a discussion with patient and daughter today that her hemoglobin is down to 6.7, I suspect out her upper GI bleed has returned, it is slowly persisting, likely a slow GI bleed, she does not really complain of bloody or black stools no hematemesis -I would transfuse her 1 unit PRBC she is on Protonix, Carafate, will monitor her closely, with her recent stroke, we can certainly do an EGD and colonoscopy if needed, but there would be risks given her recent stroke -I had extensive discussion with patient's daughte in-law r and patient about her MRI findings, MRI shows that she has an acute infarct in the right frontal lobe, anterior cerebral artery distribution, she also has multiple tiny lacunar infarcts in the right periventricular white matter also on the right -I think that 1 component of her weakness is likely from this acute CVA -She really does not have complaints of focal weakness no facial droop no slurring of her words, she tells me both her legs are weak, she does not really favor 1 side over the other but today's examination does reveal that of the left lower extremity she does have some slightly more weakness in the right, no significant upper extremity weakness,, but she does report unsteadiness, no memory changes, no visual changes, no personality changes -I had extensive discussion with patient and her kjotizde-jp-ikz about her goals of care -Ultimately this is a very difficult situation, as she has been recently discharged from [facility] for an acute upper GI bleed, requiring EGD, which was life-threatening in nature hemoglobin down to 7 but never required transfusion, now she is is down to 6.7 is requiring blood -I am highly suspicious that this is a embolic phenomenon from atrial fibrillation -In most cases we will place patient back on Coumadin and watch him here in the hospital -But given her recent GI bleed and her persistent anemia requiring blood, she has a high risk of morbidity and mentality if we were to resume anticoagulation -But on the other hand she has a risk of developing further embolic phenomenon -Certainly this is a difficult situation, there is really no good option, -However I was upfront and honest with patient and her axiavzoj-in-tug, patient was honest with me that she did not want to be put back on anticoagulation, she suffered a life-threatening GI bleed and she never wants to go through that again and I would not comply with her wishes -But certainly a stroke can be life-threatening, and morbidity and mortality associated -And in the event that she she does have a stroke, I fear that she would not be a candidate for tPA given her recent GI bleed and her persistent bleeding she could be a candidate for endovascular clot retrieval -She tells me that she has never had her carotids evaluated we will order carotid artery ultrasound, in addition to cardiac echo -The options that I discussed with her was monitored here in the hospital, watching her hemoglobin, starting her on aspirin 81 mg, monitoring her hemoglobin closely versus trying anticoagulation -After discussing the risk benefits of all options, shared decision making, she voiced understanding, all questions answered, for now she wants to try aspirin 81 mg, atorvastatin, medical management, PT OT, conservative interventions -We will watch her hemoglobin closely, if she requires further units of blood, or suffer complication we can certainly consider doing an EGD, -Her and her daughter in law voiced understanding, all questions answered, agreed to proceed -Spoke to radiology, V RADS, spoke to radiologist, has evidence of carotid artery stenosis, will order CTA head and neck Vitals/I&O/Wt Last Vital Signs Temp 98.2 F 01/25/23 15:15 Pulse 68 01/25/23 15:15 Resp 18 01/25/23 15:15 BP 157/64 01/25/23 15:15 Pulse Ox 97 01/25/23 15:15 O2 Del Method Nasal Cannula 01/25/23 11:09 O2 Flow Rate 2.5 01/25/23 08:00 01/25/23 01/25/23 01/25/23 06:59 14:59 22:59 Intake Total 597 / 2197 960 / 960 Balance 597 / 1797 960 / 960 Weight last 48 hrs Weight 90.265 kg Physical Exam Const: COMMON NORMALS: no acute distress and patient oriented x3 Neck/C-Spine: COMMON NORMALS: no JVD Resp: COMMON NORMALS: normal respiratory effort, No retractions, No use of accessory muscles and clear to auscultation bilaterally AUSCULTATION: clear to auscultation bilaterally Cardio: COMMON NORMALS: no JVD, regular rate, regular rhythm, S1 normal heart sound present and S2 normal heart sound present RATE: regular rate RHYTHM: regular rhythm HEART SOUNDS: S1 normal heart sound present and S2 normal heart sound present GI: COMMON NORMALS: Normal to inspection, nondistended, normoactive bowel sounds present and non-tender Extremity: COMMON NORMALS: no pedal edema Neuro: COMMON NORMALS: patient oriented x3, CN's II-XII intact bilaterally, moves all extremities and no sensory deficits noted OTHER: Left lower extremity, very slight weakness compared to right maybe 4 out of 5 Psych: COMMON NORMALS: mental status grossly normal Data 01/25/23 03:25 01/25/23 03:25 A&P Assessment and plan (1) Physical deconditioning: (2) Anemia: (3) Shingles: (4) GI bleed: (5) History of atrial fibrillation: (6) History of type 2 diabetes mellitus: (7) Acute encephalopathy: (8) Generalized weakness: (9) Acute CVA (cerebrovascular accident): (10) Embolic stroke: (11) Iron deficiency anemia: (12) Carotid artery stenosis: Plan 77-year-old female with history of CAD s/p CABG 5 years ago atrial fibrillation on warfarin till 1 week ago, recent history of GI bleed history of shingles 3 weeks ago no antiviral medications take and chronic anemia was brought in by family for worsening of generalized weakness Acute on chronic anemia with -iron deficient anemia -Secondary to slow GI bleed -Iron studies shows evidence of iron deficiency anemia, Hemoccult stool, CT scan abdomen pelvis no acute findings -Monitor hemoglobin closely -Transfuse 1 unit PRBC History of GI bleed, history of gastric ulcer -Protonix, Carafate -Monitor hemoglobin closely Intractable nausea vomiting -Complains of right upper quadrant pain -CT scan abdomen pelvis no acute findings Shingles rash -Right upper quadrant -Contact precautions -Keep area clean and dry, keep covered -Continue valacyclovir -Tramadol for pain control -Doxycycline for cellulitis prophylaxis Generalized weakness -PT OT Type 2 diabetes mellitus, low-dose sliding scale, Lantus 10 units at bedtime Acute encephalopathy, likely secondary to CVA, resolved Atrial fibrillation, not on anticoagulation due to GI bleed, off Coumadin, telemetry monitoring ARIANA, IV fluids Given history of recent GI bleed intermittent compression stockings for DVT prophylaxis. She is full code for now Acute CVA -Likely embolic from atrial fibrillation, MR/MR head wo con* [id number] IMPRESSION: 1. ? Acute infarct in the right frontal lobe, LILI distribution, corresponding with hypodense lesion seen on CT head 01/23/2023. 2. ? Multiple additional tiny acute infarcts in the right periventricular white matter, possibly within the right internal capsule. 3. ? 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 -NIH stroke scale currently 1, out of tPA window, timeframe unknown Plan -Continue medical management, conservative management -For now patient declines anticoagulation, understands risks and benefits, due t o concerns for GI bleed, anemia -Continue aspirin 81 mg -Continue atorvastatin 40 mg -Continue gentle IV hydration -PT OT, speech therapy eval -Allow for permissive hypertension -Telemetry monitoring Carotid artery stenosis US/CV carotid duplex BI* [id number] Impression: 1. Prominent mixed echogenic plaque formation within the carotid arteries. 2. Asymmetrically elevated systolic velocity measurements in the internal carotid arteries, right greater than left, consistent with medium grade stenosis, on the order of 50-69%.? 3. Normal antegradew flow within the vertebral arteries. Plan -Order CT head and neck -Aspirin, statin ? - Patient was seen this morning -Multiple times, initially she was up out of bed into wheelchair, in the bathroom -She was later seen in bed, with her maegmmge-th-ace over the phone -I had extensive discussion with her about her [place] [facility] [place] [facility] [place] the [place] -But according to her vetsldmy-kh-gnk, she was admitted at [facility] for acute blood loss anemia and upper GI bleed secondary to Coumadin for for which she is on Coumadin for, they did not specifically find a source of bleeding, but she had significant black tarry emesis so they took her off the Coumadin, she does not remember what her INR was -But they never gave her a transfusion, as her hemoglobin remained greater than 7 -I had a discussion with patient and daughter today that her hemoglobin is down to 6.7, I suspect out her upper GI bleed has returned, it is slowly persisting, likely a slow GI bleed, she does not really complain of bloody or black stools no hematemesis -I would transfuse her 1 unit PRBC she is on Protonix, Carafate, will monitor her closely, with her recent stroke, we can certainly do an EGD and colonoscopy if needed, but there would be risks given her recent stroke -I had extensive discussion with patient's daughte in-law r and patient about her MRI findings, MRI shows that she has an acute infarct in the right frontal lobe, anterior cerebral artery distribution, she also has multiple tiny lacunar infarcts in the right periventricular white matter also on the right -I think that 1 component of her weakness is likely from this acute CVA -She really does not have complaints of focal weakness no facial droop no slurring of her words, she tells me both her legs are weak, she does not really favor 1 side over the other but today's examination does reveal that of the left lower extremity she does have some slightly more weakness in the right, no significant upper extremity weakness,, but she does report unsteadiness, no memory changes, no visual changes, no personality changes -I had extensive discussion with patient and her ywtxdjod-we-rdv about her goals of care -Ultimately this is a very difficult situation, as she has been recently discharged from [facility] for an acute upper GI bleed, requiring EGD, which was life-threatening in nature hemoglobin down to 7 but never required transfusion, now she is is down to 6.7 is requiring blood -I am highly suspicious that this is a embolic phenomenon from atrial fibrillation -In most cases we will place patient back on Coumadin and watch him here in the hospital -But given her recent GI bleed and her persistent anemia requiring blood, she dumas s a high risk of morbidity and mentality if we were to resume anticoagulation -But on the other hand she has a risk of developing further embolic phenomenon -Certainly this is a difficult situation, there is really no good option, -However I was upfront and honest with patient and her xraniisf-kd-ios, patient was honest with me that she did not want to be put back on anticoagulation, she suffered a life-threatening GI bleed and she never wants to go through that again and I would not comply with her wishes -But certainly a stroke can be life-threatening, and morbidity and mortality associated -And in the event that she she does have a stroke, I fear that she would not be a candidate for tPA given her recent GI bleed and her persistent bleeding she could be a candidate for endovascular clot retrieval -She tells me that she has never had her carotids evaluated we will order carotid artery ultrasound, in addition to cardiac echo -The options that I discussed with her was monitored here in the hospital, watching her hemoglobin, starting her on aspirin 81 mg, monitoring her hemoglobin closely versus trying anticoagulation -After discussing the risk benefits of all options, shared decision making, she voiced understanding, all questions answered, for now she wants to try aspirin 81 mg, atorvastatin, medical management, PT OT, conservative interventions -We will watch her hemoglobin closely, if she requires further units of blood, or suffer complication we can certainly consider doing an EGD, -Her and her daughter in law voiced understanding, all questions answered, agreed to proceed -Spoke to radiology, Jamil BROOKS, spoke to radiologist, has evidence of carotid artery stenosis, will order CTA head and neck Attestations Medical Necessity Statement*: Patient requires hospitalization, acute CVA, carotid artery stenosis, acute anemia, GI bleed, shingles rash Coding Level of Care Code 67734 High Time for a total of 70 minutes, includes reviewing past or interval history, examining/interviewing patient, placing orders, counseling patient/family/other support, updating patient/family/other support, discussing plan of care with staff, communicating with other healthcare providers, documenting encounter and coordinating care Diagnoses Physical deconditioning R53.81 Anemia D64.9 Shingles B02.9 GI bleed K92.2 History of atrial fibrillation Z86.79 History of type 2 diabetes mellitus Z86.39 Acute encephalopathy G93.40 Generalized weakness R53.1 Acute CVA (cerebrovascular accident) I63.9 Embolic stroke I63.9 Iron deficiency anemia D50.9 Carotid artery stenosis I65.29
--- NOTE | 2023-01-25 16:05 | PC.OT ---
OT evaluation withheld this date per nursing request, receiving blood transfusion. To attempt on a later date.
--- NOTE | 2023-01-25 16:18 | PC.OT ---
OT evaluation withheld this date, patient receiving blood transfusion. To attempt on a later date.
[2023-01-25 16:25] LABS: Glucose Point of Care 236 mg/dL (70-110)
--- NOTE | 2023-01-25 17:13 | PC.NURSE ---
notified Dr. Kohler of elevated blood pressures on patient. Elevated all afternoon
[2023-01-25] MEDS: iohexol 350 mg/mL 500 mL Btl (per mL) IV (17:26)
[2023-01-25 18:59] LABS: Hematocrit 29.3 % (36-47)
[2023-01-25] MEDS: atorvastatin 40 mg Tablet PO (20:56)
[2023-01-25] MEDS: insulin glargine 100 units/1 mL 10 UNIT SUBCUT (20:57)
[2023-01-25 21:05] LABS: Glucose Point of Care 193 mg/dL (70-110)
[2023-01-25] MEDS: sodium chloride 0.9% 1,000 ML 50 ML IV (23:52)
[2023-01-26] VITALS (9 sets, daily range): BP systolic 148–188; BP diastolic 60–75; PULSE 60–80; RESP 17–19; TEMP 36.4–36.9; O2SAT 96–99
[2023-01-26 05:53] LABS: Basophils # 0.1 10^3/uL (0.0-0.1); Basophils % 0.8 %; Eosinophils # 0.3 10^3/uL (0.0-0.8); Eosinophils % 3.1 %; Hematocrit 27.4 % (36-47); Lymphocytes # 1.2 10^3/uL (0.8-4.8); Lymphocytes % 12.1 %; Mean Corpuscular HGB Conc 32.8 g/dL (30-55); Mean Corpuscular Hemoglobin 31.4 pg (27-33); Mean Corpuscular Volume 95.5 fl (85-98); Mean Platelet Volume 8.8 fL (7.4-10.4); Monocytes # 0.8 10^3/uL (0.2-0.9); Monocytes % 8.5 %; Neutrophils # 7.18 10^3/uL (1.8-7.7); Nucleated Red Blood Cells % 0 %; Platelet Count 262 10^3/cmm (157-399); Red Blood Count 2.87 10^6/uL (3.85-5.65); Red Cell Distribution Width 15.2 % (12.1-15.1)
[2023-01-26 06:08] LABS: Blood Urea Nitrogen 12 mg/dL (8-23); Calcium 8.2 mg/dL (8.5-10.5); Carbon Dioxide 28 mmol/L (22-29); Chloride 97 mmol/L (98-107); Glucose 141 mg/dL (65-115); Osmolality Calculated 274 mOsm/kg (285-295); Sodium 131 mmol/L (136-145)
[2023-01-26 06:09] LABS: Anion Gap 10.3 (5-19); Potassium 4.3 mmol/L (3.5-5.1)
[2023-01-26 06:36] LABS: Glucose Point of Care 154 mg/dL (70-110)
[2023-01-26] MEDS: valACYclovir 1,000 mg Tablet 1000 MG PO ×2 (07:49→14:46)
[2023-01-26] MEDS: insulin lispro 100 unit/1 mL SUBCUT ×3 (07:49→17:35)
[2023-01-26] MEDS: sucralfate 1 gm Tablet PO ×2 (08:50→21:18)
[2023-01-26] MEDS: doxycycline 100 mg Tablet PO ×2 (08:50→17:35)
[2023-01-26] MEDS: aspirin 81 mg EC Tablet PO (08:51)
[2023-01-26] MEDS: gabapentin 300 mg Capsule PO ×3 (08:51→21:18)
[2023-01-26] MEDS: amlodipine 10 mg Tablet PO (08:51)
[2023-01-26] MEDS: OXcarbazepine 300 mg Tablet PO ×2 (09:54→17:35)
[2023-01-26] MEDS: pantoprazole 40 mg SDV IVP ×2 (10:16→21:20)
[2023-01-26] MEDS: lisinopril 20 mg Tablet PO ×2 (10:24→21:18)
[2023-01-26 11:52] LABS: Glucose Point of Care 215 mg/dL (70-110)
--- NOTE | 2023-01-26 12:51 | P.PN_ITS ---
Subjective Subjective: Patient was seen this morning, she is alert oriented x3, following all commands, denies any facial droop no slurring of words, no focal weakness but does report generalized weakness that persist, her appetite is improving, we discussed her CT findings, with bilateral carotid artery stenosis, will monitor, continue to medically manage she needs to follow-up with vascular surgery as outpatient un fortunately as her discussion with the previous day, and given her ongoing anemia, concerns for slow GI bleed she will not be able to tolerate anticoagulation at this point but we can reconsider as outpatient if her hemoglobin remained stable, today her hemoglobin is 9.0, she denies any bloody or black stools Vitals/I&O/Wt Last Vital Signs Temp 98.2 F 01/26/23 12:00 Pulse 68 01/26/23 12:00 Resp 18 01/26/23 12:00 BP 188/72 01/26/23 12:00 Pulse Ox 99 01/26/23 08:27 O2 Del Method Nasal Cannula 01/26/23 08:27 O2 Flow Rate 2.5 01/26/23 08:00 01/25/23 01/26/23 01/26/23 22:59 06:59 14:59 Intake Total 100 / 2060 1080 / 1080 Balance 100 / 2060 1080 / 1080 Weight last 48 hrs Weight 90.265 kg Physical Exam Const: COMMON NORMALS: no acute distress and patient oriented x3 Resp: COMMON NORMALS: normal respiratory effort, No retractions, No use of accessory muscles and clear to auscultation bilaterally AUSCULTATION: clear to auscultation bilaterally Cardio: COMMON NORMALS: regular rate, regular rhythm, S1 normal heart sound present and S2 normal heart sound present RATE: regular rate RHYTHM: regular rhythm HEART SOUNDS: S1 normal heart sound present and S2 normal heart sound present GI: COMMON NORMALS: Normal to inspection, nondistended, normoactive bowel sounds present and non-tender Extremity: COMMON NORMALS: no pedal edema Neuro: COMMON NORMALS: patient oriented x3 Psych: COMMON NORMALS: mental status grossly normal Data 01/26/23 05:25 01/26/23 05:25 A&P Assessment and plan (1) Physical deconditioning: (2) Anemia: (3) Shingles: (4) GI bleed: (5) History of atrial fibrillation: (6) History of type 2 diabetes mellitus: (7) Acute encephalopathy: (8) Generalized weakness: (9) Acute CVA (cerebrovascular accident): (10) Embolic stroke: (11) Iron deficiency anemia: (12) Carotid artery stenosis: Plan 77-year-old female with history of CAD s/p CABG 5 years ago atrial fibrillation on warfarin till 1 week ago, recent history of GI bleed history of shingles 3 weeks ago no antiviral medications take and chronic anemia was brought in by family for worsening of generalized weakness, admitted for acute on chronic anemia, acute CVA, lower GI bleed Acute on chronic anemia with -iron iron deficiency anemia -Secondary to slow GI bleed -Iron studies shows evidence of iron deficiency anemia, Hemoccult stool, CT scan abdomen pelvis no acute findings -Monitor hemoglobin closely -Status post 1 unit PRBC -Hemoglobin stable at 9 History of GI bleed, history of gastric ulcer -Protonix, Carafate -Monitor hemoglobin closely Intractable nausea vomiting -Complains of right upper quadrant pain -CT scan abdomen pelvis no acute findings Shingles rash -Right upper quadrant -Contact precautions -Keep area clean and dry, keep covered -Continue valacyclovir -Tramadol for pain control -Doxycycline for cellulitis prophylaxis Generalized weakness -PT OT Type 2 diabetes mellitus, low-dose sliding scale, Lantus 10 units at bedtime Acute encephalopathy, likely secondary to CVA, resolved Atrial fibrillation, not on anticoagulation due to GI bleed, off Coumadin, telemetry monitoring Given history of recent GI bleed intermittent compression stockings for DVT prophylaxis. She is full code for now Acute CVA -Likely embolic from atrial fibrillation, MR/MR head wo con* [id number] IMPRESSION: 1. ? Acute infarct in the right frontal lobe, LILI distribution, corresponding with hypodense lesion seen on CT head 01/23/2023. 2. ? Multiple additional tiny acute infarcts in the right periventricular white matter, possibly within the right internal capsule. 3. ? 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 -NIH stroke scale currently 1, out of tPA window, timeframe unknown Plan -Continue medical management, conservative management -For now patient declines anticoagulation, understands risks and benefits, due to concerns for GI bleed, anemia -Continue aspirin 81 mg -Continue atorvastatin 40 mg -Continue gentle IV hydration -PT OT, speech therapy eval -Allow for permissive hypertension -Telemetry monitoring Carotid artery stenosis CTA head and neck IMPRESSION: 1. ? Calcified plaque causes mild <50% stenoses at the right and left carotid siphons. 2. ? Severe 80% stenosis at the distal segment of the dominant left vertebral artery. 3. ? Hypoplastic patent right vertebral artery. 4. ? At least mild stenosis at the origin of the left posterior cerebral artery.? IMPRESSION: 1. ? Moderate 60% stenosis at the right carotid bulb. 2. ? Moderate 60% stenosis at the left carotid bulb and 65% stenosis just proximal to the carotid canal. 3. ? Severe 80% stenosis at the distal segment of the dominant left vertebral artery. Plan -Aspirin, statin ? Plan for today monitor hemoglobin, continue PT OT, blood pressures are elevated, resume blood pressure medications after stroke, permissive hypertension, speech therapy eval, PT OT, Attestations Medical Necessity Statement*: Patient requires hospitalization due to slow GI bleed, acute CVA, carotid artery stenosis, acute on chronic anemia Diagnoses Physical deconditioning R53.81 Anemia D64.9 Shingles B02.9 GI bleed K92.2 History of atrial fibrillation Z86.79 History of type 2 diabetes mellitus Z86.39 Acute encephalopathy G93.40 Generalized weakness R53.1 Acute CVA (cerebrovascular accident) I63.9 Embolic stroke I63.9 Iron deficiency anemia D50.9 Carotid artery stenosis I65.29
--- NOTE | 2023-01-26 14:00 | PC.NURSE ---
MTS declined patient.
[2023-01-26 16:56] LABS: Glucose Point of Care 159 mg/dL (70-110)
[2023-01-26] MEDS: atorvastatin 40 mg Tablet PO (21:18)
[2023-01-26 21:28] LABS: Glucose Point of Care 123 mg/dL (70-110)
[2023-01-26] MEDS: insulin glargine 100 units/1 mL 10 UNIT SUBCUT (21:53)
[2023-01-27] VITALS (8 sets, daily range): BP systolic 108–171; BP diastolic 67–78; PULSE 60–72; RESP 15–18; TEMP 36.6–36.9; O2SAT 91–98
[2023-01-27] MEDS: valACYclovir 1,000 mg Tablet 1000 MG PO ×3 (00:42→15:09)
[2023-01-27 05:40] LABS: Basophils # 0.1 10^3/uL (0.0-0.1); Eosinophils # 0.3 10^3/uL (0.0-0.8); Eosinophils % 3.1 %; Hematocrit 28.4 % (36-47); Lymphocytes # 1.6 10^3/uL (0.8-4.8); Lymphocytes % 17.1 %; Mean Corpuscular HGB Conc 33.5 g/dL (30-55); Mean Corpuscular Volume 95.6 fl (85-98); Mean Platelet Volume 8.7 fL (7.4-10.4); Monocytes # 0.9 10^3/uL (0.2-0.9); Monocytes % 9.9 %; Neutrophils # 6.37 10^3/uL (1.8-7.7); Nucleated Red Blood Cells % 0 %; Platelet Count 261 10^3/cmm (157-399); Red Blood Count 2.97 10^6/uL (3.85-5.65); Red Cell Distribution Width 14.6 % (12.1-15.1); White Blood Count 9.36 10^3/uL (3.29-11.43)
[2023-01-27 05:59] LABS: Anion Gap 12.9 (5-19); Blood Urea Nitrogen 13 mg/dL (8-23); Calcium 8.6 mg/dL (8.5-10.5); Carbon Dioxide 29 mmol/L (22-29); Chloride 96 mmol/L (98-107); Glucose 120 mg/dL (65-115); Osmolality Calculated 279 mOsm/kg (285-295); Potassium 3.9 mmol/L (3.5-5.1); Sodium 134 mmol/L (136-145)
[2023-01-27 06:38] LABS: Glucose Point of Care 129 mg/dL (70-110)
[2023-01-27] MEDS: gabapentin 300 mg Capsule PO ×3 (09:51→21:46)
[2023-01-27] MEDS: aspirin 81 mg EC Tablet PO (09:51)
[2023-01-27] MEDS: sucralfate 1 gm Tablet PO ×2 (09:51→21:46)
[2023-01-27] MEDS: doxycycline 100 mg Tablet PO ×2 (09:51→17:39)
[2023-01-27] MEDS: OXcarbazepine 300 mg Tablet PO ×2 (09:51→17:39)
[2023-01-27] MEDS: amlodipine 10 mg Tablet PO (09:51)
[2023-01-27] MEDS: pantoprazole 40 mg SDV IVP ×2 (10:38→22:05)
[2023-01-27 11:07] LABS: Glucose Point of Care 213 mg/dL (70-110)
[2023-01-27] MEDS: lisinopril 20 mg Tablet PO ×2 (11:39→23:55)
[2023-01-27] MEDS: insulin lispro 100 unit/1 mL SUBCUT (11:39)
--- NOTE | 2023-01-27 16:12 | PM.PN ---
Subjective Subjective: Patient was seen this morning, she denies any focal weakness, no facial droop slurring of her words, no weakness, no bloody or black stools, she does tell me that her shingles rash, right upper quadrant, abdomen, is crusting over, but she has a lot of pain in that location, he tries to limit her pain medication Vitals/I&O/Wt Last Vital Signs Temp 98 F 01/27/23 12:00 Pulse 72 01/27/23 12:00 Resp 18 01/27/23 12:00 BP 152/70 01/27/23 12:00 Pulse Ox 91 01/27/23 11:52 O2 Del Method Nasal Cannula 01/27/23 04:00 O2 Flow Rate 2 01/27/23 08:00 01/27/23 01/27/23 01/27/23 06:59 14:59 22:59 Intake Total 240 / 240 Output Total 900 / 900 Balance -900 / 1140 240 / 240 Physical Exam Const: COMMON NORMALS: no acute distress and patient oriented x3 Resp: COMMON NORMALS: normal respiratory effort, No retractions, No use of accessory muscles and clear to auscultation bilaterally AUSCULTATION: clear to auscultation bilaterally Cardio: COMMON NORMALS: regular rate, regular rhythm, S1 normal heart sound present and S2 normal heart sound present RATE: regular rate RHYTHM: regular rhythm HEART SOUNDS: S1 normal heart sound present and S2 normal heart sound present GI: COMMON NORMALS: Normal to inspection, nondistended, normoactive bowel sounds present and non-tender Extremity: COMMON NORMALS: no pedal edema Neuro: COMMON NORMALS: patient oriented x3 Psych: COMMON NORMALS: mental status grossly normal Skin: NARRATIVE SKIN EXAM: Right flank, right upper quadrant, shingles rash, crusted over, Data 01/27/23 05:33 01/27/23 05:33 A&P Assessment and plan (1) Physical deconditioning: (2) Anemia: (3) Shingles: (4) GI bleed: (5) History of atrial fibrillation: (6) History of type 2 diabetes mellitus: (7) Acute encephalopathy: (8) Generalized weakness: (9) Acute CVA (cerebrovascular accident): (10) Embolic stroke: (11) Iron deficiency anemia: (12) Carotid artery stenosis: Plan 77-year-old female with history of CAD s/p CABG 5 years ago atrial fibrillation on warfarin till 1 week ago, recent history of GI bleed history of shingles 3 weeks ago no antiviral medications take and chronic anemia was brought in by family for worsening of generalized weakness, admitted for acute on chronic anemia, acute CVA, lower GI bleed Acute on chronic anemia with -iron iron deficiency anemia -Secondary to slow GI bleed -Iron studies shows evidence of iron deficiency anemia, Hemoccult stool, CT scan abdomen pelvis no acute findings -Monitor hemoglobin closely -Status post 1 unit PRBC -Hemoglobin stable at 9.5 History of GI bleed, history of gastric ulcer -Protonix, Carafate -Monitor hemoglobin closely Intractable nausea vomiting -Complains of right upper quadrant pain -CT scan abdomen pelvis no acute findings Shingles rash -Right upper quadrant -Contact precautions -Keep area clean and dry, keep covered -Continue valacyclovir -Tramadol for pain control -Doxycycline for cellulitis prophylaxis Generalized weakness -PT OT Type 2 diabetes mellitus, low-dose sliding scale, Lantus 10 units at bedtime Acute encephalopathy, likely secondary to CVA, resolved Atrial fibrillation, not on anticoagulation due to GI bleed, off Coumadin, telemetry monitoring Given history of recent GI bleed intermittent compression stockings for DVT prophylaxis. She is full code for now Acute CVA -Likely embolic from atrial fibrillation, MR/MR head wo con* [id number] IMPRESSION: 1. ? Acute infarct in the right frontal lobe, LILI distribution, corresponding with hypodense lesion seen on CT head 01/23/2023. 2. ? Multiple additional tiny acute infarcts in the right periventricular white matter, possibly within the right internal capsule. 3. ? 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 -NIH stroke scale currently 1, out of tPA window, timeframe unknown Plan -Continue medical management, conservative management -For now patient declines anticoagulation, understands risks and benefits, due to concerns for GI bleed, anemia -Continue aspirin 81 mg -Continue atorvastatin 40 mg -PT OT, speech therapy eval -Resume blood pressure medications -Telemetry monitoring Carotid artery stenosis CTA head and neck IMPRESSION: 1. ? Calcified plaque causes mild <50% stenoses at the right and left carotid siphons. 2. ? Severe 80% stenosis at the distal segment of the dominant left vertebral artery. 3. ? Hypoplastic patent right vertebral artery. 4. ? At least mild stenosis at the origin of the left posterior cerebral artery.? IMPRESSION: 1. ? Moderate 60% stenosis at the right carotid bulb. 2. ? Moderate 60% stenosis at the left carotid bulb and 65% stenosis just proximal to the carotid canal. 3. ? Severe 80% stenosis at the distal segment of the dominant left vertebral artery. Plan -Aspirin, statin ? Plan for today PT OT, monitor hemoglobin, monitor he blood pressure Attestations Medical Necessity Statement*: Patient requires hospitalization for acute CVA, carotid artery stenosis, GI bleed, anemia Diagnoses Physical deconditioning R53.81 Anemia D64.9 Shingles B02.9 GI bleed K92.2 History of atrial fibrillation Z86.79 History of type 2 diabetes mellitus Z86.39 Acute encephalopathy G93.40 Generalized weakness R53.1 Acute CVA (cerebrovascular accident) I63.9 Embolic stroke I63.9 Iron deficiency anemia D50.9 Carotid artery stenosis I65.29
[2023-01-27 17:08] LABS: Glucose Point of Care 128 mg/dL (70-110)
[2023-01-27 21:19] LABS: Glucose Point of Care 320 mg/dL (70-110)
[2023-01-27] MEDS: insulin glargine 100 units/1 mL 10 UNIT SUBCUT (21:46)
[2023-01-27] MEDS: atorvastatin 40 mg Tablet PO (21:46)
[2023-01-27] MEDS: amitriptyline 25 mg Tablet PO (21:46)
[2023-01-28] VITALS: BP 151/62; PULSE 61; RESP 14; TEMP 36.8; O2SAT 94
[2023-01-28 04:00] VITALS: BP 131/58; PULSE 62; RESP 16; TEMP 36.9; O2SAT 94
[2023-01-28 05:46] LABS: Basophils # 0.1 10^3/uL (0.0-0.1); Basophils % 1.2 %; Eosinophils # 0.3 10^3/uL (0.0-0.8); Eosinophils % 3.4 %; Hematocrit 28.3 % (36-47); Lymphocytes # 1.5 10^3/uL (0.8-4.8); Lymphocytes % 21.2 %; Mean Corpuscular HGB Conc 32.9 g/dL (30-55); Mean Corpuscular Hemoglobin 31.7 pg (27-33); Mean Corpuscular Volume 96.6 fl (85-98); Mean Platelet Volume 8.6 fL (7.4-10.4); Monocytes # 0.8 10^3/uL (0.2-0.9); Monocytes % 11.1 %; Neutrophils # 4.51 10^3/uL (1.8-7.7); Nucleated Red Blood Cells % 0 %; Platelet Count 259 10^3/cmm (157-399); Red Blood Count 2.93 10^6/uL (3.85-5.65); Red Cell Distribution Width 14.3 % (12.1-15.1); White Blood Count 7.28 10^3/uL (3.29-11.43)
[2023-01-28 05:58] LABS: Anion Gap 11.9 (5-19); Blood Urea Nitrogen 18 mg/dL (8-23); Calcium 8.6 mg/dL (8.5-10.5); Carbon Dioxide 30 mmol/L (22-29); Chloride 94 mmol/L (98-107); Glucose 116 mg/dL (65-115); Osmolality Calculated 277 mOsm/kg (285-295); Potassium 3.9 mmol/L (3.5-5.1); Sodium 132 mmol/L (136-145)
[2023-01-28 06:34] LABS: Glucose Point of Care 135 mg/dL (70-110)
[2023-01-28] MEDS: valACYclovir 1,000 mg Tablet 1000 MG PO (07:58)
[2023-01-28] MEDS: OXcarbazepine 300 mg Tablet PO (08:00)
[2023-01-28] MEDS: doxycycline 100 mg Tablet PO (08:00)
[2023-01-28] MEDS: gabapentin 300 mg Capsule PO (08:00)
[2023-01-28] MEDS: sucralfate 1 gm Tablet PO (08:00)
[2023-01-28] MEDS: aspirin 81 mg EC Tablet PO (08:00)
[2023-01-28] MEDS: amlodipine 10 mg Tablet PO (08:00)
[2023-01-28] MEDS: pantoprazole 40 mg SDV IVP (08:00)
[2023-01-28 08:15] VITALS: BP 153/71; PULSE 65; RESP 16; TEMP 36.8; O2SAT 95
[2023-01-28 09:00] LABS: SARS Covid-2 Antigen negative (Negative)
--- NOTE | 2023-01-28 11:12 | P.DS_ITS ---
Discharge Providers Date of Admission: 01/24/23 17:38 Date of Discharge: January 28, 2023 Attending Provider at Admission: Kristi Ruby MD Attending Provider at Discharge: Dragan Kohler MD Primary Care Provider: Alex Gary DO Diagnoses at Discharge Discharge Diagnosis (1) Physical deconditioning: Status: Acute (2) Anemia: Status: Acute (3) Shingles: Status: Acute (4) GI bleed: Status: Acute (5) History of atrial fibrillation: Status: Acute (6) History of type 2 diabetes mellitus: Status: Acute (7) Acute encephalopathy: Status: Acute (8) Generalized weakness: Status: Acute (9) Acute CVA (cerebrovascular accident): Status: Acute (10) Embolic stroke: Status: Acute (11) Iron deficiency anemia: Status: Acute (12) Carotid artery stenosis: Status: Acute Reason for Visit Reason for Visit: doctor thinks that her hgb is low Hospital Course Hospital Course This is a 77-year-old female with a past medical history of CAD status post CABG 5 years ago, history of atrial fibrillation, not on anticoagulation due to recent history of GI bleed admitted at [facility], requiring EGD, she and her family were told that she had a gastric ulcer, did not require transfusion, type 2 diabetes mellitus insulin-dependent, iron deficiency, who presents to [facility] for generalized weakness Patient had a complicated hospital course, please look at my last progress note for further details I will summarize her hospitalization as below Patient was admitted to [facility] for generalized weakness secondary to acute on chronic anemia, likely multifactorial from iron deficiency anemia, acute on chronic slow GI bleed, during hospitalization she did not have any clinical evidence of bloody black stools, or significant active bleeding, no hemodynamic compromise. She did require 1 unit PRBC, Protonix, Carafate, monitoring her hemoglobin, and remained stable on discharge at 9.3. I will need to have her follow-up with general surgery in 1 month for consideration of repeat EGD and colonoscopy, as ultimately there will be a question of when and if to resume her anticoagulation given her atrial fibrillation and recent CVA as below, nonetheless outpatient physician and shelter should monitor hemoglobin repeat in 48 hours. If she were to have any bloody or black stools to go to the emergency room. Avoid blood thinners, avoid anti-inflammatory medications such as NSAIDs. Discharged on Protonix, Carafate. Discharged on iron replacement therapy. Recent history of GI bleed, history of gastric ulcer admitted at [facility], currently admitted [facility] for acute on chronic anemia concerning for acute on chronic slow GI bleed, no hemodynamic compromise, no evidence of active bleeding, no bloody or black stools, discharged on Protonix and Carafate as above, follow-up with general surgery as outpatient for consideration of EGD colonoscopy. If she were to have any bloody or black stools please go to emergency room. Patient had shingles rash surgical hospitalization, requiring contact precautions, valacyclovir, tramadol for pain control Elavil for postherpetic neuralgia, doxycycline for cellulitis prophylaxis. Overall she clinically improved, on discharge her shingles rash persists, has scaled over, continue contact precautions as below, avoid children under the age of 11 years old, avoid immunocompromise individuals, avoid individuals. Discharged on 3 more days of valacyclovir. She is complete her doxycycline as inpatient. Discussed with primary care provider as outpatient for shingles vaccination a month. During her hospitalization, she was found to have an acute CVA, concerning for embolic phenomenon from her known atrial fibrillation for which she was taken off Coumadin, for recent GI bleed, MRI showed acute infarct involving the right frontal lobe, LILI distribution with tiny lacunar infarcts in the right periventricular white matter, her NIH stroke scale was 1, she was out of tPA window timeframe was unknown. She was medically managed as inpatient, clinically monitored no focal weakness more generalized weakness, managed with aspirin, statin, PT OT, speech therapy eval. -I had a detailed discussion with patient, daughter, about her CVA, her GI bleed her atrial fibrillation -This is a very difficult situation, as she has had acute CVA, highly suspicious for embolic phenomena related to atrial fibrillation -In most situations we could discharge her on anticoagulant therapy to decrease her risk of a stroke -However she recently had a GI bleed, gastric ulcer that was bleeding, for which she was taken off Coumadin which complicates things -And during this hospitalization she is developed anemia requiring transfusion of 1 unit PRBC -This is a very difficult situation and that on the one hand we have a risk of further CVAs as she is not on anticoagulation and morbidity and mortality associated, but on the other hand if we put her on anticoagulation she has a risk of life-threatening GI bleed, morbidity and mortality associated such as she had at [facility] -So certainly this is a difficult situation, -Patient had voiced to be on day 1 that she did not want to be put on blood thinners -We had shared decision making, I discussed her and her family the risks and benefits of all options trying anticoagulation versus not trying anticoagulation -Discussed the risk and benefits of all options, shared decision making -Her and her family voiced understanding, all questions answered, -For now patient, and her family, want to avoid anticoagulant therapy-such as Coumadin or Eliquis -They understand the risk and benefits, risk of future strokes, morbidity and mortality associated, agreed to proceed -I am going to have her follow-up with neurology and cardiology, for shared decision making as outpatient -In decision if and when to resume anticoagulation as outpatient -She also might benefit from a repeat EGD and colonoscopy in 2 to 4 weeks I will have her follow-up general surgery, for consideration, -Nonetheless, I have discharged on aspirin 81 mg once daily, I was upfront and honest with patient even with aspirin 81 mg there is a risk of significant GI bleeds, and even with aspirin 81 mg there is a risk of strokes given she has had evidence of embolic strokes -They agreed with aspirin 81 mg she was monitored as inpatient, no recurrent strokelike symptoms and her hemoglobin remained stable, discharge aspirin 81 mg -Again I was upfront and honest with family and patient that I am worried that if she has any recurrent strokelike symptoms she would not be deemed a candidate for tPA given her recent GI bleed and anemia, but we can see what the specialist including cardiology, neurology and general surgery say -If any recurrent strokelike symptoms please call 911 -Patient was also found to have bilateral carotid artery stenosis, severe stenosis of distal left vertebral artery, -I am going to have him follow-up with neurology and vascular surgery as outpatient -Discharged on aspirin, statin as above, not currently a candidate for anticoagulant therapy given above discussion -Discharge to shelter facility for PT OT -For your type 2 diabetes mellitus inject Tresiba 10 units at bedtime -Please monitor your blood sugars closely -Monitor your blood sugars 3 times daily as after meals -Please record your blood sugars, and a blood sugar log -For your NovoLog -Please inject blood sugar after meals based on sliding scale provided -Do not inject insulin if you do not eat as hypoglycemia kills -This is a NovoLog sliding scale -Insulin sliding ?fingerstick? Insulin ?141-180?0 units/sq 181-220?2 units/sq ?221-260?4 units/sq ?261-300 6 units/sq ?301-350?8 units/sq ?351-400 10 units/sq ?401-450?12 units/sq >450? 14units/sq -If your blood sugar is greater than 500 go to the emergency room -If your blood sugar is less than 60 or at anytime you feel lightheaded or dizzy or diaphoretic or have chest palpitations check your blood sugar, and eat a hard candy or drink orange juice and go immediately to the emergency room -Remember hypoglycemia kills, so if his blood sugar is less than 60 we have to increase it by taking in a sugary meal such as a hard candy or orange juice and go to the emergency room -If you have any questions please call us where here to help -For your acute on chronic anemia, please avoid ibuprofen, nonsteroidal anti- inflammatory medications, monitor hemoglobin as outpatient have shelter recheck hemoglobin in 48 hours, hemoglobin discharge 9.3 -For your GI bleed, history of gastric ulcer continue Protonix, Carafate, see general surgery in 1 month for consideration of repeat EGD and colonoscopy -For your shingles rash, keep area clean and dry, contact precautions, 3 more days of valacyclovir please use tramadol sparingly for pain, please avoid immunocompromise individuals, children on the age of 11 years old and avoid individuals -For atrial fibrillation, we have not discharged you on anticoagulation, due to GI bleed and anemia, please see cardiology in 2 to 4 weeks for discussion of if and when to resume anticoagulation -For your acute CVA, highly concerning for embolic phenomenon, with history of atrial fibrillation I discharged aspirin, statin, please follow-up with neurology, and as above follow-up with cardiology and neurology for shared decision making of if and when to resume anticoagulation given her GI bleed -For your carotid artery stenosis, please follow-up with Dr. Choe for monitoring and surveillance, discharged on aspirin, statin -If any recurrent strokelike symptoms please call 9 1 Physical Exam Const: COMMON NORMALS: no acute distress and patient oriented x3 Resp: COMMON NORMALS: normal respiratory effort, No retractions, No use of accessory muscles and clear to auscultation bilaterally AUSCULTATION: clear to auscultation bilaterally Cardio: COMMON NORMALS: regular rate, regular rhythm, S1 normal heart sound present and S2 normal heart sound present RATE: regular rate RHYTHM: regular rhythm HEART SOUNDS: S1 normal heart sound present and S2 normal heart sound present GI: COMMON NORMALS: Normal to inspection, nondistended, normoactive bowel sounds present and non-tender Extremity: COMMON NORMALS: no pedal edema Neuro: COMMON NORMALS: patient oriented x3, CN's II-XII intact bilaterally, moves all extremities and no focal motor deficits Psych: COMMON NORMALS: mental status grossly normal Skin: NARRATIVE SKIN EXAM: Shingles rash, right upper quadrant, scaled over, not actively draining Discharge Data Studies Completed and Pending Completed Studies During Hospitalization Category Date Time Status CT abdomen pelvis wo con [id number] Routine Cat Scan 01/23/23 12:[address] angio head neck [CT angio headneck* [id number]] Cat Scan 01/25/23 14:[address] head wo con* [id number] Routine Cat Scan 01/23/23 12:13 Completed XR chest 1V portable [id number] Routine Exams 01/23/23 09:39 Completed MR head wo con* [id number] Routine MRI 01/24/23 13:12 Completed CV carotid duplex BI* [id number] Routine Ultrasound 01/25/23 11:33 Completed CV. echo complete* [id number] Routine Ultrasound 01/25/23 11:33 Completed Pending at discharge Category Date Time Status Basic Metabolic Panel AM LABS Lab 01/29/23 04:00 Ordered Basic Metabolic Panel AM LABS Lab 01/30/23 04:00 Ordered Complete Blood Count w/Auto AM LABS Lab 01/29/23 04:00 Ordered Complete Blood Count w/Auto AM LABS Lab 01/30/23 04:00 Ordered Occult Blood Stool [Immunochemical Fecal OCB] Routine Lab 01/23/23 09:34 Uncollected Radiology Impressions Head MRI 01/24/23 13:12 IMPRESSION: 1. Acute infarct in the right frontal lobe, LILI distribution, corresponding with hypodense lesion seen on CT head 01/23/2023. 2. Multiple additional tiny acute infarcts in the right periventricular white matter, possibly within the right internal capsule. 3. 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 ADDENDUM: 01/24/23 1534 ADDENDUM: THIS REPORT CONTAINS FINDINGS THAT MAY BE CRITICAL TO PATIENT CARE. The findings were verbally communicated via telephone conference with Dr. Kohler at 3:32 PM CDT on 01/24/2023. The findings were acknowledged and understood. Carotid Doppler Study 01/25/23 11:33 Impression: 1. Prominent mixed echogenic plaque formation within the carotid arteries. 2. Asymmetrically elevated systolic velocity measurements in the internal carotid arteries, right greater than left, consistent with medium grade stenosis, on the order of 50-69%. 3. Normal antegradew flow within the vertebral arteries. ADDENDUM: 01/25/23 1359 THIS REPORT CONTAINS FINDINGS THAT MAY BE CRITICAL TO PATIENT CARE. The findings were verbally communicated via telephone conference with DRAGAN Farris at 1:57 PM CDT on 01/25/2023. The findings were acknowledged and understood. Head/Neck CTA 01/25/23 14:42 IMPRESSION: 1. Calcified plaque causes mild <50% stenoses at the right and left carotid siphons. 2. Severe 80% stenosis at the distal segment of the dominant left vertebral artery. 3. Hypoplastic patent right vertebral artery. 4. At least mild stenosis at the origin of the left posterior cerebral artery. IMPRESSION: 1. Moderate 60% stenosis at the right carotid bulb. 2. Moderate 60% stenosis at the left carotid bulb and 65% stenosis just proximal to the carotid canal. 3. Severe 80% stenosis at the distal segment of the dominant left vertebral artery. REFERENCES: NASCET CRITERIA. The degree of stenosis in the cervical segment of the internal carotid artery is based on NASCET criteria. Normal is no stenosis. Mild is less than 50% stenosis. Moderate is 50-69% stenosis. Severe is 70% to 99% stenosis. Total occlusion is no detectable patent lumen. Laboratory Results WBC 7.28 10^3/uL (3.29-11.43) 01/28/23 05:30 RBC 2.93 10^6/uL (3.85-5.65) L 01/28/23 05:30 Hgb 9.30 g/dL (11.27-16.99) L 01/28/23 05:30 Hct 28.3 % (36-47) L 01/28/23 05:30 MCV 96.6 fl (85-98) 01/28/23 05:30 MCH 31.7 pg (27-33) 01/28/23 05:30 MCHC 32.9 g/dL (30-55) 01/28/23 05:30 RDW 14.3 % (12.1-15.1) 01/28/23 05:30 Plt Count 259 10^3/cmm (157-399) 01/28/23 05:30 MPV 8.6 fL (7.4-10.4) 01/28/23 05:30 Neut % (Auto) 62.0 % 01/28/23 05:30 Lymph % (Auto) 21.2 % 01/28/23 05:30 [place] % (Auto) 11.1 % 01/28/23 05:30 Eos % (Auto) 3.4 % 01/28/23 05:30 Baso % (Auto) 1.2 % 01/28/23 05:30 Neut # (Auto) 4.51 10^3/uL (1.8-7.7) 01/28/23 05:30 Lymph # (Auto) 1.5 10^3/uL (0.8-4.8) 01/28/23 05:30 [place] # (Auto) 0.8 10^3/uL (0.2-0.9) 01/28/23 05:30 Eos # (Auto) 0.3 10^3/uL (0.0-0.8) 01/28/23 05:30 Baso # (Auto) 0.1 10^3/uL (0.0-0.1) 01/28/23 05:30 Nucleated RBC % (auto) 0 % 01/28/23 05:30 Nucleated RBCs # 0.0 /100WBC 01/28/23 05:30 PT 13.50 SECONDS (12.1-14.9) 01/25/23 19:22 INR 1.00 (0.8-1.2) 01/25/23 19:22 Sodium 132 mmol/L (136-145) L 01/28/23 05:30 Potassium 3.9 mmol/L (3.5-5.1) 01/28/23 05:30 Chloride 94 mmol/L (98-107) L 01/28/23 05:30 Carbon Dioxide 30 mmol/L (22-29) H 01/28/23 05:30 Anion Gap 11.9 (5-19) 01/28/23 05:30 BUN 18 mg/dL (8-23) 01/28/23 05:30 Creatinine 1.2 mg/dL (0.5-0.9) H 01/28/23 05:30 GFR Calculation Not Reportable 01/28/23 05:30 Glucose 116 mg/dL (65-115) H 01/28/23 05:30 POC Glucose 135 mg/dL (70-110) H 01/28/23 06:19 Calculated Osmolality 277 mOsm/kg (285-295) L 01/28/23 05:30 Calcium 8.6 mg/dL (8.5-10.5) 01/28/23 05:30 Iron 18 ug/dL (37-145) L 01/23/23 09:03 TIBC 276 mcg/dl 01/23/23 09:03 % Saturation 6.5 % (20-50) L 01/23/23 09:03 Unsat Iron Binding 258 ug/dL (112-347) 01/23/23 09:03 Ferritin 41 ng/mL (15-150) 01/23/23 09:03 Total Bilirubin 0.2 mg/dL (0.15-1.2) 01/23/23 09:03 AST 14 U/L (0-32) 01/23/23 09:03 ALT 14 U/L (0-33) 01/23/23 09:03 Alkaline Phosphatase 64 U/L (35-105) 01/23/23 09:03 Troponin T Baseline 17 ng/L (0-10) H 01/23/23 09:03 Troponin T 120 Minute 15.30 ng/L (0-10) H 01/23/23 11:22 Delta Troponin T -1.70 ABS# (0-10) L 01/23/23 11:22 Troponin T Hi Sens 6Hr 17.31 ng/L (0-10) H 01/23/23 15:00 Troponin T Hi Sens 6Hr Delta 0.31 ng/L (0-12) 01/23/23 15:00 NT-Pro-B Natriuret Pep 257 pg/mL (0-450) 01/23/23 09:03 Total Protein 5.7 g/dL (6.6-8.7) L 01/23/23 09:03 Albumin 3.5 g/dL (3.5-5.2) 01/23/23 09:03 Globulin 2.2 g/dL (1.3-4.6) 01/23/23 09:03 Vitamin B12 708 pg/mL (232-1245) 01/23/23 09:03 Folate < 20.0 ng/mL (4.8-37.3) 01/23/23 09:03 Urine Color Straw (Yellow) 01/24/23 13:29 Urine Appearance Clear (CLEAR) 01/24/23 13:29 Urine pH 6 (5-7) 01/24/23 13:29 Ur Specific Moore 1.010 (1.005-1.030) 01/24/23 13:29 Urine Protein Neg (Negative) 01/24/23 13:29 Urine Glucose (UA) 1+ (Normal) H 01/24/23 13:29 Urine Ketones Negative (Negative) 01/24/23 13:29 Urine Blood Neg (Negative) 01/24/23 13:29 Urine Nitrate Negative (Negative) 01/24/23 13:29 Urine Bilirubin Neg (Negative) 01/24/23 13:29 Urine Urobilinogen Norm mg/dL (Negative) 01/24/23 13:29 Ur Leukocyte Esterase Negative (Negative) 01/24/23 13:29 SARS-CoV-2 Ag (Rapid) negative (Negative) 01/28/23 08:20 Blood Type A Positive 01/23/23 15:00 Rho(D) Type Positive 01/23/23 15:00 Antibody Screen Not Reportable 01/23/23 15:00 PEG Antibody Screen Negative 01/23/23 15:00 Cold Antibody Screen Positive 01/23/23 15:00 Crossmatch See Detail 01/23/23 15:00 Vitals Last Vital Signs Temp 98.3 F 01/28/23 08:15 Pulse 65 01/28/23 08:15 Resp 16 01/28/23 08:15 BP 153/71 01/28/23 08:15 Pulse Ox 95 01/28/23 08:15 O2 Del Method Room Air 01/28/23 08:15 O2 Flow Rate 2 01/28/23 08:00 Discharge Plan Discharge Patient Disposition: Xfer SNF Condition: Stable Prescriptions: New tramadol 50 mg Tablet 50 mg PO Q6H PRN (Reason: Moderate Pain) 5 Days Qty: 20 0RF sucralfate 1 gram Tablet 1 g PO Q12H 30 Days Qty: 60 0RF amlodipine 10 mg Tablet 10 mg PO DAILY 30 Days Qty: 30 0RF atorvastatin 40 mg Tablet 40 mg PO BEDTIME 30 Days Qty: 30 0RF amitriptyline 25 mg Tablet 25 mg PO BEDTIME 30 Days Qty: 30 0RF pantoprazole [Protonix] 40 mg tablet,delayed release (DR/EC) 40 mg PO BID 30 Days Qty: 60 0RF valacyclovir 1 gram Tablet 1,000 mg PO Q8H 3 Days Qty: 9 0RF aspirin 81 mg Tablet,Delayed Release (Dr/Ec) 81 mg PO DAILY 30 Days Qty: 30 0RF ferrous sulfate 325 mg (65 mg iron) tablet 325 mg PO BID 30 Days Qty: 60 0RF insulin aspart U-100 [Novolog FlexPen U-100 Insulin] 100 unit/mL (3 mL) insulin pen See Rx Instructions .ROUTE .COMPLEX MDD 40 Qty: 15 0RF Rx Instructions: inject subcut, three times daily, after meals based on sliding scale provided Continued lisinopril 20 mg tablet 20 mg PO BID gabapentin 300 mg capsule 300 mg PO TID mupirocin 2 % ointment 1 applic TOPICAL BID furosemide 20 mg tablet 20 mg PO DAILY PRN (Reason: Weight Gain) naloxone 4 mg/actuation spray,non-aerosol See Rx Instructions .ROUTE .COMPLEX Rx Instructions: 1 spray intranasally upon signs of opiate overdose. Call 911 oxcarbazepine 300 mg tablet 300 mg PO BID Changed Tresiba FlexTouch U-100 100 unit/mL (3 mL) insulin pen 10 unit SUBCUT BEDTIME Qty: 3 0RF Discontinued pioglitazone 15 mg tablet 15 mg PO QAM tramadol 50 mg tablet 50 - 100 mg PO Q6H PRN (Reason: Pain) fluvastatin 40 mg capsule 40 mg PO BEDTIME glimepiride 4 mg tablet 4 mg PO BID Discharge Orders: Discharge Order (Routine); Ordered 01/28/23 Ordered By: Dragan Kohler Referrals: [facility] [Outside] Merrill Castellano MD [Physician] - 1 month (need for egd and colonoscopy) Cisco Henson MD [Physician] - 2 weeks (cva) Berto Ybarra M.D [Physician] - 2 weeks Lamin Choe MD [Physician] - 1 month (carotid stenosis monitoring) Alex Gary DO [Primary Care Provider] - 7-10 days Discharge Diet: Cardiac Discharge Activity: Resume usual activity Patient Instructions: Tramadol (By mouth), GI Bleeding, A-fib (Atrial Fibrillation) (DC), Shingles (DC), Ischemic Stroke (DC), Opioid Safety Activity Restrictions/Additional Instructions: -For your type 2 diabetes mellitus inject Tresiba 10 units at bedtime -Please monitor your blood sugars closely -Monitor your blood sugars 3 times daily as after meals -Please record your blood sugars, and a blood sugar log -For your NovoLog -Please inject blood sugar after meals based on sliding scale provided -Do not inject insulin if you do not eat as hypoglycemia kills -This is a NovoLog sliding scale -Insulin sliding ?fingerstick? Insulin ?141-180?0 units/sq 181-220?2 units/sq ?221-260?4 units/sq ?261-300 6 units/sq ?301-350?8 units/sq ?351-400 10 units/sq ?401-450?12 units/sq >450? 14units/sq -If your blood sugar is greater than 500 go to the emergency room -If your blood sugar is less than 60 or at anytime you feel lightheaded or dizzy or diaphoretic or have chest palpitations check your blood sugar, and eat a hard candy or drink orange juice and go immediately to the emergency room -Remember hypoglycemia kills, so if his blood sugar is less than 60 we have to increase it by taking in a sugary meal such as a hard candy or orange juice and go to the emergency room -If you have any questions please call us where here to help -For your acute on chronic anemia, please avoid ibuprofen, nonsteroidal anti- inflammatory medications, monitor hemoglobin as outpatient have shelter recheck hemoglobin in 48 hours, hemoglobin discharge 9.3 -For your GI bleed, history of gastric ulcer continue Protonix, Carafate, see general surgery in 1 month for consideration of repeat EGD and colonoscopy -For your shingles rash, keep area clean and dry, contact precautions, 3 more days of valacyclovir please use tramadol sparingly for pain, please avoid immunocompromise individuals, children on the age of 11 years old and avoid individuals -In 1 month please discuss with primary care provider about shingles vaccination -For atrial fibrillation, we have not discharged you on anticoagulation, due to GI bleed and anemia, please see cardiology in 2 to 4 weeks for discussion of if and when to resume anticoagulation -For your acute CVA, highly concerning for embolic phenomenon, with history of atrial fibrillation I discharged aspirin, statin, please follow-up with neurology, and as above follow-up with cardiology and neurology for shared decision making of if and when to resume anticoagulation given her GI bleed -For your carotid artery stenosis, please follow-up with Dr. Choe for monitoring and surveillance, discharged on aspirin, statin Discharge Attestations Time Spent in Discharge Care*: greater than 30 min Quality Metrics Clinical Quality Measures [ Cerebrovascular Accident { Contraindication to Antithrombotic: None; antithrombotic prescribed; Contraindication to Anticoagulation: Medical contraindication; Contraindication to Statin: None; Statin prescribed;}] Coding Level of Care Code 20277 Total time (in minutes) for Discharge: 60 Diagnoses Physical deconditioning R53.81 Anemia D64.9 Shingles B02.9 GI bleed K92.2 History of atrial fibrillation Z86.79 History of type 2 diabetes mellitus Z86.39 Acute encephalopathy G93.40 Generalized weakness R53.1 Acute CVA (cerebrovascular accident) I63.9 Embolic stroke I63.9 Iron deficiency anemia D50.9 Carotid artery stenosis I65.29
[2023-01-28 11:26] VITALS: BP 159/66; PULSE 69; RESP 18; TEMP 36.8; O2SAT 93
[2023-01-28 11:45] LABS: Glucose Point of Care 320 mg/dL (70-110)
[2023-01-28] MEDS: insulin lispro 100 unit/1 mL SUBCUT (12:25)
[2023-01-28] MEDS: lisinopril 20 mg Tablet PO (12:29)
[2023-01-28 15:18] VITALS: BP 159/66; PULSE 69; RESP 18; TEMP 36.8; O2SAT 93
== END 2023-01-28 15:19 | disposition skilled nursing facility (03) | DRG 377 ==
LOC: ER 22:36 → MEDSURG 01-23 08:04
PROVIDERS: Emergency Medicine; Admitting Provider Internal Medicine; Emergency Provider Family Medicine; PCP Family Medicine; Visit Provider Family Medicine
DX: K92.2 Gastrointestinal hemorrhage, unspecified (principal); I63.421 Cerebral infarction due to embolism of right anterior cerebral artery; B02.29 Other postherpetic nervous system involvement; N17.9 Acute kidney failure, unspecified; R29.701 NIHSS score 1; I25.10 Atherosclerotic heart disease of native coronary artery without angina pectoris; Z95.1 Presence of aortocoronary bypass graft; I48.91 Unspecified atrial fibrillation; E11.9 Type 2 diabetes mellitus without complications; D50.9 Iron deficiency anemia, unspecified; I65.22 Occlusion and stenosis of left carotid artery
CPT/HCPCS: 36415; 36416; 36430; 70450; 70496; 70498; 70551; 71045; 74176; 80048; 80053; 81003; 82607; 82728; 82746; 82962; 83540; 83550; 83880; 84484; 85014; 85018; 85025; 85610; 86850; 86900; 86920; 87426; 92507; 92523; 92610; 93005; 93306; 93880; 96360; 96361; 96372; 97110; 97116; 97161; 97165; 97530; 99285; C9113; G0378; J1815; J2405; J2765; J3490; J7030; J7040; P9040; Q9967